=== PATIENT | female | born 1930 | race Caucasian/White ===

== ENCOUNTER 2016-03-08 20:44 | Emergency (ER) | payer OTHER ==
[2016-03-08 20:51] VITALS: BP 143/73; PULSE 94; TEMP 97.9; BMI 32.9
--- NOTE | 2016-03-08 21:25 | PDOC ---
History of Present Illness - General History Source: Family - History of Present Illness Initial Comments: 03/08/16 21:32 The patient is a 85 year old female with a PMH of AFIB, HTN, HLD and depression presented to the ED complaining of right knee pain secondary to mechanical fall. The patients daughter reports the patient was walking up the stairs and landed on both of her hands and both of her knees. Daughter denies LOC and head trauma. The patient lives at home with her family. Denies: chest pain, headache <Marcia Queen - Last Filed: 03/08/16 22:00> - General History Source: Patient <Ang Cristina - Last Filed: 03/08/16 23:04> - General Chief Complaint: Injury Stated Complaint: FALL/INJURY Time Seen by Provider: 03/08/16 21:21 Past History <Marcia Queen - Last Filed: 03/08/16 22:00> - Past Medical History Asthma: Yes Cardiac Disorders: Yes (afib) HTN: Yes Hypercholesterolemia: Yes - Surgical History Cholecystectomy: Yes - Immunization History Immunization Up to Date: Yes - Psycho/Social/Smoking Cessation Hx Anxiety: No Suicidal Ideation: No Smoking History: Never smoked Have you smoked in the past 12 months: No Hx Alcohol Use: No Drug/Substance Use Hx: No Substance Use Type: None Hx Substance Use Treatment: No <Ang Cristina - Last Filed: 03/08/16 23:04> - Past Medical History Allergies/Adverse Reactions: Allergies Allergy/AdvReac Type Severity Reaction Status Date / Time levofloxacin Allergy Rash Verified 03/08/16 20:47 Home Medications: Ambulatory Orders Atorvastatin Ca [Lipitor] 20 mg PO HS 07/07/14 Dabigatran Etexilate Mesylate [Pradaxa -] 150 mg PO BID 07/07/14 Diltiazem HCl [Cardizem LA] 180 mg PO DAILY 07/07/14 Paroxetine HCl [Paxil -] 40 mg PO DAILY 07/07/14 Potassium Chloride [K-Dur] 10 meq PO DAILY 07/07/14 Salmeterol/Fluticasone [Advair 100Mcg/50Mcg -] 1 inh IH BID 07/07/14 Diazepam [Valium] 5 mg PO HS PRN #3 tablet MDD 5 mg 08/03/16 Digoxin [Lanoxin -] 0.125 mg PO DAILY 03/08/16 Review of Systems - Review of Systems Able to Perform ROS?: Yes Comments:: 03/08/16 21:32 CONSTITUTIONAL: Absent: fever, chills, diaphoresis, generalized weakness, malaise, loss of appetite HEENT: Absent: rhinorrhea, nasal congestion, throat pain, throat swelling, difficulty swallowing, mouth swelling, ear pain, eye pain, visual Changes CARDIOVASCULAR: Absent: chest pain, syncope, palpitations, irregular heart rate, lightheadedness , peripheral edema RESPIRATORY: Absent: cough, shortness of breath, dyspnea with exertion, orthopnea, wheezing, stridor, hemoptysis GASTROINTESTINAL: Absent: abdominal pain, abdominal distension, nausea, vomiting, diarrhea, constipation, melena, hematochezia GENITOURINARY: Absent: dysuria, frequency, urgency, hesitancy, hematuria, flank pain, genital pain MUSCULOSKELETAL: + Right knee pain SKIN: Absent: rash, itching, pallor NEUROLOGIC: Absent: headache, focal weakness or paresthesias, dizziness, seizure, mental status changes, bladder or bowel incontinence PSYCHIATRIC: Absent: anxiety, depression, suicidal or homicidal ideation, hallucinations. 03/08/16 22:00 <Marcia Queen - Last Filed: 03/08/16 22:00> *Physical Exam - Vital Signs Last Vital Signs Temp Pulse Resp BP Pulse Ox 97.9 F 94 H 22 143/73 99 03/08/16 20:49 03/08/16 20:49 03/08/16 20:49 03/08/16 20:49 03/08/16 20:49 - Physical Exam Comments: 03/08/16 21:36 GENERAL: Well developed, well nourished. Awake and alert. No acute distress. HEENT: Normocephalic, atraumatic. PERRLA, EOMI. No conjunctival pallor. Sclera are non- icteric. Moist mucous membranes. Oropharynx is clear. NECK: Supple. Full ROM. No JVD. Carotid pulses 2+ and symmetric, without bruits. No thyromegaly. No lymphadenopathy. CARDIOVASCULAR: Regular rate and rhythm. No murmurs, rubs, or gallops. Distal pulses are 2+ and symmetric. PULMONARY: No evidence of respiratory distress. Lungs clear to auscultation bilaterally. No wheezing, rales or rhonchi. ABDOMINAL: Soft. Non-tender. Non-distended. No rebound or guarding. No organomegaly. Normoactive bowel sounds. MUSCULOSKELETAL Tenderness and swelling and ecchymosis to the right knee. Decreased ROM secondary to pain. EXTREMITIES: No cyanosis. No clubbing. No edema. No calf tenderness. SKIN: Warm and dry. Normal capillary refill. No rashes. No jaundice. NEUROLOGICAL: Alert, awake, appropriate. Cranial nerves 2-12 intact. No focal neurological deficits. PSYCHIATRIC: Cooperative. Good eye contact. Appropriate mood and affect. 03/08/16 22:00 <Marcia Queen - Last Filed: 03/08/16 22:00> - Vital Signs Last Vital Signs Temp Pulse Resp BP Pulse Ox 97.9 F 94 H 22 143/73 99 03/08/16 20:49 03/08/16 20:49 03/08/16 20:49 03/08/16 20:49 03/08/16 20:49 <Ang Cristina - Last Filed: 03/08/16 23:04> Medical Decision Making - Medical Decision Making 03/08/16 22:57 Dr. Cristina: The scribe's documentation has been prepared under my direction and personally reviewed by me in its entirery. I confirm that the note above accurately reflects all work, treatment, procedures, and medical decision making performed by me. Right knee x-ray no bony fracture. large effusion noted in knee. Will advise family to follow-up with orthopedist <Ang Cristina - Last Filed: 03/08/16 23:04> *DC/Admit/Observation/Transfer - Attestations Scribe Attestion: 03/08/16 21:37 Documentation prepared by Marcia Queen, acting as bilingual medical receptionist for Ang Cristina MD/. <Marcia Queen - Last Filed: 03/08/16 22:00> - Discharge Dispostion Admit: No <Ang Cristina - Last Filed: 03/08/16 23:04> Diagnosis at time of Disposition: Knee pain, right Qualifiers: Chronicity: acute Qualified Code(s): M25.561 - Pain in right knee - Discharge Dispostion Disposition: HOME Condition at time of disposition: Stable - Referrals Referrals: Jack De Leon MD [Primary Care Provider] - Avery Ross MD [Staff Physician] - - Patient Instructions Printed Discharge Instructions: DI for Knee Pain
[2016-03-08] MEDS ORDERED: ACETAMINOPHEN 325 MG TABLET (FP) PO ONE (21:26)
[2016-03-08] MEDS ORDERED: ACETAMINOPHEN 325 MG TABLET (FP) ONE (23:13)
== END 2016-03-08 23:26 | disposition home or self-care (01) ==
LOC: JER 20:44
DX: M25.561 Pain in right knee (principal); I48.91 Unspecified atrial fibrillation; Z79.01 Long term (current) use of anticoagulants; I10 Essential (primary) hypertension; E78.5 Hyperlipidemia, unspecified; F32.9 Major depressive disorder, single episode, unspecified; J45.909 Unspecified asthma, uncomplicated; Z90.49 Acquired absence of other specified parts of digestive tract; W18.39XA Other fall on same level, initial encounter; Y93.89 Activity, other specified; Y92.009 Unspecified place in unspecified non-institutional (private) residence as the place of occurrence of the external cause
CPT/HCPCS: 73562-TC-RT; 99282-25

== ENCOUNTER 2017-07-18 05:57 | Emergency (ER) | payer OTHER ==
[2017-07-18 06:38] VITALS: TEMP 97.4; BMI 30.1
[2017-07-18] MEDS ORDERED: ACETAMINOPHEN 1000 MG/100 ML VIAL (NON FORMULARY) IVPB ONE (07:20)
[2017-07-18] MEDS ORDERED: ACETAMINOPHEN INJECTION 100 ML IVPB ONE (07:25)
[2017-07-18] MEDS ORDERED: traMADol HCL 50 MG TABLET PO ONE (07:29)
[2017-07-18 07:37] LABS: BASO % 0.8 % (0-2.0); EOS % 3.1 % (0-4.5); HEMATOCRIT 34.4 % (32.4-45.2); HEMOGLOBIN 11.7 GM/dL (10.7-15.3); LYMPH % 20.2 % (8-40); MCH 29.9 pg (25.7-33.7); MEAN PLT VOLUME 7.9 fl (7.5-11.1); MONO % 5.5 % (3.8-10.2); NEUT % 70.4 % (42.8-82.8); PLATELET COUNT 283 K/MM3 (134-434); RBC 3.91 M/mm3 (3.60-5.2); RDW 15.7 % (11.6-15.6); WHITE BLOOD COUNT 7.4 K/mm3 (4.0-10.0)
[2017-07-18] MEDS ORDERED: traMADol HCL 50 MG TABLET ONE (07:40)
[2017-07-18 07:56] LABS: INR 1.34 (0.82-1.09); PROTHROMBIN TIME (PATIENT) 15.1 SEC (9.7-13.0)
[2017-07-18 08:23] LABS: URINE APPEARANCE SLCLOUDY; URINE BILIRUBIN NEGATIVE (<2.0 mg/dL); URINE COLOR YELLOW; URINE GLUCOSE (UA) NEGATIVE (NEGATIVE); URINE KETONE TRACE (NEGATIVE); URINE NITRITE NEGATIVE (NEGATIVE)
[2017-07-18 08:32] LABS: URINE LEUK ESTERASE 2+ (NEGATIVE); URINE PROTEIN 1+ (NEGATIVE)
[2017-07-18 08:33] LABS: BLOOD UREA NITROGEN 18 mg/dL (7-18); CALCIUM 8.9 mg/dL (8.5-10.1); CO2 29 mmol/L (21-32); CREATININE 1.1 mg/dL (0.55-1.02); GLUCOSE,RANDOM 99 mg/dL (74-106); LIPASE 121 U/L (73-393); SGPT/ALT 39 U/L (12-78)
[2017-07-18 08:34] LABS: ANION GAP 9 (8-16); CHLORIDE 106 mmol/L (98-107); SODIUM 144 mmol/L (136-145)
[2017-07-18 08:36] LABS: ALK PHOS 150 U/L (45-117); BILIRUBIN,TOTAL 0.9 mg/dL (0.2-1.0); TOT PROT 7.4 g/dl (6.4-8.2)
[2017-07-18 08:37] LABS: EPI CELLS RARE /HPF (FEW); URINE HYALINE CAST 3 /lpf
[2017-07-18 08:38] LABS: POTASSIUM 3.6 mmol/L (3.5-5.1)
[2017-07-18 08:40] LABS: SGOT/AST 46 U/L (15-37)
--- NOTE | 2017-07-18 08:46 | PDOC ---
History of Present Illness - General History Source: Patient Exam Limitations: No Limitations - History of Present Illness Initial Comments: 07/18/17 09:09 The patient is a 87 year old female, with a significant PMH of atrial fibrillation (on Pradaxa), congestive heart failure, hypertension, who presents to the emergency department with 5 days of constant left mid back pain. The patient states she was outside gardening this past Monday when she lifted a heavy cement flower statue from the ground up to her left side and placed the statue back on the ground. The patient reports that later that day she began to experience the left mid back pain which she states has been constant from that time and radiates around to the left side of her abdomen/ribs. The patient states the left mid back pain is worse with movement and bending over. She states she has tried taking Tylenol for the left mid back pain with minimal relief. She denies any numbness, tingling, weakness or loss of sensation. She denies any bowel or bladder incontinence. The patient denies chest pain, shortness of breath, headache and dizziness. Denies fever, chills, nausea, vomit, diarrhea and constipation. Denies dysuria, frequency, urgency and hematuria. Allergies: levofloxacin Social history: No reported PCP: Dr. Robin Scales <Ruddy Hoyt - Last Filed: 07/18/17 09:13> <Jama Cancino - Last Filed: 07/18/17 09:58> - General Chief Complaint: Pain Stated Complaint: PAIN,LT SIDE Time Seen by Provider: 07/18/17 07:17 Past History <Ruddy Hoyt - Last Filed: 07/18/17 09:13> - Past Medical History Asthma: Yes Cardiac Disorders: Yes (afib) COPD: No HTN: Yes Hypercholesterolemia: Yes - Surgical History Cholecystectomy: Yes - Immunization History Immunization Up to Date: Yes - Suicide/Smoking/Psychosocial Hx Smoking History: Never smoked Have you smoked in the past 12 months: No Information on smoking cessation initiated: No Hx Alcohol Use: No Drug/Substance Use Hx: No Substance Use Type: None Hx Substance Use Treatment: No <Jama Cancino - Last Filed: 07/18/17 09:58> - Past Medical History Allergies/Adverse Reactions: Allergies Allergy/AdvReac Type Severity Reaction Status Date / Time levofloxacin Allergy Rash Verified 07/18/17 06:32 Home Medications: Ambulatory Orders Atorvastatin Ca [Lipitor] 20 mg PO DAILY 07/07/14 Dabigatran Etexilate Mesylate [Pradaxa -] 150 mg PO BID 07/07/14 Diltiazem HCl [Cardizem LA] 240 mg PO DAILY 07/07/14 Paroxetine HCl [Paxil -] 40 mg PO DAILY 07/07/14 Potassium Chloride [K-Dur] 10 meq PO DAILY 07/07/14 Albuterol Sulfate Inhaler - [Ventolin HFA Inhaler -] 1 - 2 inh PO Q4H PRN Fluticasone/Salmeterol [Advair 250-50 Diskus] 1 each IH DAILY 07/18/17 Furosemide [Lasix] 20 mg PO DAILY 07/18/17 Multivitamin [Daily Multiple Vitamin] 1 each PO DAILY 07/18/17 Nitrofurantoin Monohyd/M-Cryst [Macrobid -] 100 mg PO BID #14 capsule 07/18/17 Tramadol HCl [Ultram] 50 mg PO TID PRN #10 tablet MDD 3 tabs 07/18/17 Review of Systems - Review of Systems Constitutional: No: Chills, Fever Respiratory: No: Cough, Shortness of Breath, SOB with Exertion Cardiac (ROS): No: Chest Pain, Edema, Lightheadedness, Syncope ABD/GI: No: Constipated, Diarrhea, Nausea, Vomiting : No: Dysuria, Flank Pain Musculoskeletal: Yes: Muscle Pain Integumentary: No: Bruising, Rash All Other Systems: Reviewed and Negative <Jama Cancino - Last Filed: 07/18/17 09:58> *Physical Exam - Vital Signs Last Vital Signs Temp Pulse Resp BP Pulse Ox 97.4 F L 86 20 150/102 96 07/18/17 06:27 07/18/17 07:30 07/18/17 07:30 07/18/17 07:30 07/18/17 07:30 - Physical Exam Comments: 07/18/17 09:10 GENERAL: The patient is awake, alert, and fully oriented, in no acute distress. HEAD: Normal with no signs of trauma. EYES: Pupils equal, round and reactive to light, extraocular movements intact, sclera anicteric, conjunctiva clear with no pallor. ENT: Ears normal, nares patent, oropharynx clear without exudates. Moist mucous membranes. NECK: Normal range of motion, supple without lymphadenopathy, JVD, or masses. LUNGS: Breath sounds equal, clear to auscultation bilaterally. No wheeze/ crackles. HEART: Regular rate and rhythm, normal S1 and S2 without murmur or rub. CHEST: (+) Focal tenderness to the left lower ribs from the 7th to 10th rib. No crepitus, bruising or step off. ABDOMEN: Soft/nontender/nondistended. BS wnl. No guarding or rebound. No palpable masses. No hepatosplenomegaly. EXTREMITIES: Normal range of motion, no edema. No clubbing or cyanosis. No cords, erythema, or tenderness. NEUROLOGICAL: Cranial nerves II through XII grossly intact. Normal speech, normal gait. PSYCH: Normal mood, normal affect. SKIN: Warm, Dry, normal turgor, no rashes or lesions noted. <Ruddy Hoyt - Last Filed: 07/18/17 09:13> - Vital Signs Last Vital Signs Temp Pulse Resp BP Pulse Ox 97.4 F L 86 20 150/102 96 07/18/17 06:27 07/18/17 07:30 07/18/17 07:30 07/18/17 07:30 07/18/17 07:30 <Jama Cancino - Last Filed: 07/18/17 09:58> ED Treatment Course - LABORATORY CBC & Chemistry Diagram: 07/18/17 07:20 07/18/17 07:24 - ADDITIONAL ORDERS Additional order review: Laboratory Results 07/18/17 07/18/17 07/18/17 07:42 07:24 07:24 PT with INR 15.10 H INR 1.34 H Sodium 144 Potassium 3.6 Chloride 106 Carbon Dioxide 29 Anion Gap 9 BUN 18 Creatinine 1.1 H Creat Clearance w eGFR 47.21 Random Glucose 99 Calcium 8.9 Total Bilirubin 0.9 AST 46 H ALT 39 Alkaline Phosphatase 150 H Creatine Kinase 208 H Troponin I < 0.02 Total Protein 7.4 Albumin 4.0 Lipase 121 Urine Color Yellow Urine Appearance Slcloudy Urine pH 7.0 D Ur Specific Randolph 1.015 Urine Protein 1+ H Urine Glucose (UA) Negative Urine Ketones Trace H Urine Blood Negative Urine Nitrite Negative Urine Bilirubin Negative Urine Urobilinogen 2.0 H Ur Leukocyte Esterase 2+ H D Urine WBC (Auto) 12 Urine RBC (Auto) None Ur Epithelial Cells Rare Hyaline Casts 3 07/18/17 07:20 RBC 3.91 MCV 88.0 MCHC 34.0 RDW 15.7 H D MPV 7.9 Neutrophils % 70.4 Lymphocytes % 20.2 D Monocytes % 5.5 D Eosinophils % 3.1 D Basophils % 0.8 - Medications Given in the ED: ED Medications Discontinued Medications Generic Name Dose Route Start Last Admin Trade Name Giuliana PRN Reason Stop Dose Admin Acetaminophen 1,000 mg 07/18/17 07:20 07/18/17 07:31 Ofirmev Injection - IVPB 07/18/17 07:21 1,000 mg ONCE ONE Administration Tramadol HCl 50 mg 07/18/17 07:29 07/18/17 07:48 Ultram - PO 07/18/17 07:30 50 mg ONCE ONE Administration <Ruddy Hoyt - Last Filed: 07/18/17 09:13> - LABORATORY CBC & Chemistry Diagram: 07/18/17 07:20 07/18/17 07:24 - ADDITIONAL ORDERS Additional order review: Laboratory Results 07/18/17 07/18/17 07/18/17 07:42 07:24 07:24 PT with INR 15.10 H INR 1.34 H Sodium 144 Potassium 3.6 Chloride 106 Carbon Dioxide 29 Anion Gap 9 BUN 18 Creatinine 1.1 H Creat Clearance w eGFR 47.21 Random Glucose 99 Calcium 8.9 Total Bilirubin 0.9 AST 46 H ALT 39 Alkaline Phosphatase 150 H Creatine Kinase 208 H Troponin I < 0.02 Total Protein 7.4 Albumin 4.0 Lipase 121 Urine Color Yellow Urine Appearance Slcloudy Urine pH 7.0 D Ur Specific Randolph 1.015 Urine Protein 1+ H Urine Glucose (UA) Negative Urine Ketones Trace H Urine Blood Negative Urine Nitrite Negative Urine Bilirubin Negative Urine Urobilinogen 2.0 H Ur Leukocyte Esterase 2+ H D 07/18/17 07:20 RBC 3.91 MCV 88.0 MCHC 34.0 RDW 15.7 H D MPV 7.9 Neutrophils % 70.4 Lymphocytes % 20.2 D Monocytes % 5.5 D Eosinophils % 3.1 D Basophils % 0.8 - RADIOLOGY Radiology Studies Ordered: Category Date Time Status RIBS-LEFT SIDE [RAD] Stat Radiology 07/18/17 07:29 Taken - Medications Given in the ED: ED Medications Discontinued Medications Generic Name Dose Route Start Last Admin Trade Name Giuliana PRN Reason Stop Dose Admin Acetaminophen 1,000 mg 07/18/17 07:20 07/18/17 07:31 Ofirmev Injection - IVPB 07/18/17 07:21 1,000 mg ONCE ONE Administration Tramadol HCl 50 mg 07/18/17 07:29 07/18/17 07:48 Ultram - PO 07/18/17 07:30 50 mg ONCE ONE Administration <Jama Cancino - Last Filed: 07/18/17 09:58> Medical Decision Making - Medical Decision Making 07/18/17 08:43 A portion of this note was documented by scribe services under my direction. I have reviewed the details of the note, within reason, and agree with the documentation with the following case summary and management plan written by me. 87-year-old high functioning female with history of hypertension and atrial fibrillation presents with 5 days of left mid back/mid torso pain since lifting a heavy cement statue. The patient was in her garden, picked up the statue lifting it against her left side, and shortly thereafter developed pain that has been persistent, described as sharp and constant radiating from her left mid back/RIBS and anteriorly to her abdomen. No associated nausea/vomiting/cough /fever/chills/dysuria/frequency/hematuria/diarrhea/constipation. She has taken Tylenol without relief, presents for evaluation. No falls or other injuries. Vital signs normal, O2 sat normal Well-appearing, speaking full sentences, moving comfortably in stretcher Heart is irregular with normal rate, lungs are clear without focally decreased breath sounds Abdomen is completely benign Patient does have reproducible tenderness along the left lower ribs, posteriorly more than anteriorly. There is no crepitus or bruising or swelling, no CVA tenderness Neurovascular intact 87-year-old female with likely rib contusion/strain, rule out fracture. Injury occurred about 5 days ago, vital signs are normal, and there are no red flags on history or physical exam to suggest internal injury. Check basic labs and urinalysis Chest x-ray/rib x-ray Pain control Reassess 07/18/17 09:47 CBC and chemistry are within normal limits, creatinine 1.1, troponin negative. Urinalysis with 2+ leuk esterase and 12 white blood cells, we'll treat empirically for UTI given the vague abdominal discomfort. X-ray shows no evidence of rib injury or pneumothorax/effusion. Pt markedly improved after tramadol, sitting up, smiling, moving around comfortably, no light headedness or nausea. Agrees with d/c plan, at bedside, understand return criteria. <Jama Cancino - Last Filed: 07/18/17 09:58> *DC/Admit/Observation/Transfer - Attestations Scribe Attestion: 07/18/17 09:11 Documentation prepared by Ruddy Hoyt, acting as medical assistant internal medicine for Jama Cancino MD. <Ruddy Hoyt - Last Filed: 07/18/17 09:13> <Jama Cancino - Last Filed: 07/18/17 09:58> Diagnosis at time of Disposition: Rib injury UTI (urinary tract infection) Qualifiers: Urinary tract infection type: acute cystitis Hematuria presence: without hematuria Qualified Code(s): N30.00 - Acute cystitis without hematuria - Discharge Dispostion Disposition: HOME Condition at time of disposition: Improved - Prescriptions Prescriptions: Nitrofurantoin Monohyd/M-Cryst [Macrobid -] 100 mg PO BID #14 capsule Tramadol HCl [Ultram] 50 mg PO TID PRN #10 tablet MDD 3 tabs PRN Reason: Severe Pain - Referrals Referrals: Robin Scales MD [Primary Care Provider] - - Patient Instructions Printed Discharge Instructions: DI for Urinary Tract Infection (UTI), DI for Rib Contusion Additional Instructions: Activity as tolerated. Stay hydrated. Blood tests and a chest x-ray showed no abnormalities or broken ribs. The ribs are probably bruised. Tylenol 1000 mg every 8 hours and/or aleve 400 mg every 12 hours as needed for moderate pain, tramadol as prescribed as needed for severe pain. Ice and elevate the affected areas for 20 minutes every 3-4 hours to reduce swelling. A urine test shows evidence of infection. Take Macrobid as prescribed as an antibiotic. Continue your medications as previously prescribed by your physician. You should follow up with Dr. Martinez as soon as possible regarding today's emergency department visit. Return to the emergency department for any new or concerning symptoms, particularly persistent or worsening pain, fevers or chills, difficulty breathing or urinating, swelling or discoloration. - Post Discharge Activity
[2017-07-18 10:17] VITALS: BP 143/101; PULSE 92
--- NOTE | 2017-07-18 11:52 | EKG ---
Test Reason : Blood Pressure : / mmHG Vent. Rate : 090 BPM Atrial Rate : 394 BPM P-R Int : 000 ms QRS Dur : 080 ms QT Int : 360 ms P-R-T Axes : 000 021 269 degrees QTc Int : 440 ms ATRIAL FIBRILLATION ANTEROSEPTAL INFARCT (CITED ON OR BEFORE 08-JUL-2014) ABNORMAL ECG Confirmed by MD BIRDIE, AGUSTIN ([id number]) on 07/18/2017 11:51:57 AM Referred By: Confirmed By:AGUSTIN PACKER MD
== END 2017-07-18 10:17 | disposition home or self-care (01) ==
LOC: JER 05:57
PROC: 3E033NZ Introduction of Analgesics, Hypnotics, Sedatives into Peripheral Vein, Percutaneous Approach (ICD-10-PCS; principal; 2017-07-18)
DX: S29.012A Strain of muscle and tendon of back wall of thorax, initial encounter (principal); N30.00 Acute cystitis without hematuria; X50.0XXA Overexertion from strenuous movement or load, initial encounter; Y93.H2 Activity, gardening and landscaping; Y92.017 Garden or yard in single-family (private) house as the place of occurrence of the external cause; Y99.8 Other external cause status; I10 Essential (primary) hypertension; I50.9 Heart failure, unspecified; J45.909 Unspecified asthma, uncomplicated; I48.91 Unspecified atrial fibrillation; Z79.01 Long term (current) use of anticoagulants
CPT/HCPCS: 36415; 71101-TC-FY; 80053; 81003; 81015; 82550; 82553; 83690; 84484; 85025; 85610; 87086; 93005; 93010; 96374; 99285-25; J0131

== ENCOUNTER 2017-07-22 11:42 | Emergency (ER) | payer OTHER ==
[2017-07-22 11:48] VITALS: BP 152/73; PULSE 100; TEMP 97.9; BMI 30.1
--- NOTE | 2017-07-22 11:55 | PDOC ---
History of Present Illness - General Chief Complaint: Rash Stated Complaint: PAIN Time Seen by Provider: 07/22/17 11:50 History Source: Patient Exam Limitations: Language Barrier (Daughter at bedside translating, refuse [employer]) - History of Present Illness Initial Comments: 07/22/17 11:50 Patient is an 87-year-old female who presents to the emergency department with 3 days of rash from her left back to her left chest. The rash follows 1 straight line. Patient states that the pain is throbbing and burning. Denies fevers, chills, recent illness, weakness, headaches, nausea, vomiting and diarrhea. Patient was seen in our emergency department on 07/18/17 for left rib pain after gardening. At that time there was no rash. Lab work was benign. creatinine mildly elevated with possible UTI. Patient treated with Macrobid and tramadol. Past History - Travel Traveled outside of the country in the last 30 days: No Close contact w/someone who was outside of country & ill: No - Past Medical History Allergies/Adverse Reactions: Allergies Allergy/AdvReac Type Severity Reaction Status Date / Time levofloxacin Allergy Rash Verified 07/22/17 11:48 Home Medications: Ambulatory Orders Atorvastatin Ca [Lipitor] 20 mg PO DAILY 07/07/14 Dabigatran Etexilate Mesylate [Pradaxa -] 150 mg PO BID 07/07/14 Diltiazem HCl [Cardizem LA] 240 mg PO DAILY 07/07/14 Paroxetine HCl [Paxil -] 40 mg PO DAILY 07/07/14 Potassium Chloride [K-Dur] 10 meq PO DAILY 07/07/14 Albuterol Sulfate Inhaler - [Ventolin HFA Inhaler -] 1 - 2 inh PO Q4H PRN Fluticasone/Salmeterol [Advair 250-50 Diskus] 1 each IH DAILY 07/18/17 Furosemide [Lasix] 20 mg PO DAILY 07/18/17 Multivitamin [Daily Multiple Vitamin] 1 each PO DAILY 07/18/17 Nitrofurantoin Monohyd/M-Cryst [Macrobid -] 100 mg PO BID #14 capsule 07/18/17 Tramadol HCl [Ultram] 50 mg PO TID PRN #10 tablet MDD 3 tabs 07/18/17 Gabapentin 300 mg PO TID #21 capsule 07/22/17 Oxycodone HCl/Acetaminophen [Percocet 5-325 mg Tablet] 1 tab PO Q6H #20 tablet MDD 4 07/22/17 Valacyclovir HCl [Valtrex -] 1,000 mg PO TID #21 tablet 07/22/17 Asthma: Yes Cardiac Disorders: Yes (afib) COPD: No HTN: Yes Hypercholesterolemia: Yes - Surgical History Cholecystectomy: Yes - Immunization History Immunization Up to Date: Yes - Suicide/Smoking/Psychosocial Hx Smoking History: Never smoked Have you smoked in the past 12 months: No Hx Alcohol Use: No Drug/Substance Use Hx: No Substance Use Type: None Hx Substance Use Treatment: No Review of Systems - Review of Systems Able to Perform ROS?: Yes Comments:: 07/22/17 11:51 CONSTITUTIONAL: Absent: fever, chills, diaphoresis, generalized weakness, malaise, loss of appetite HEENT: Normocephalic, atraumatic. PERRLA, EOMI. No conjunctival pallor. Sclera are non- icteric. Moist mucous membranes. Oropharynx is clear. MUSCULOSKELETAL: Absent: myalgia, arthralgia, joint swelling SKIN: Present: rash to L back around to L chest. Absent: itching, pallor NEUROLOGIC: Absent: headache, focal weakness or paresthesias, dizziness, unsteady gait, seizure, mental status changes, bladder or bowel incontinence PSYCHIATRIC: Absent: anxiety, depression, suicidal or homicidal ideation, hallucinations. 07/22/17 11:54 Is the patient limited Slovak proficient: No *Physical Exam - Vital Signs Last Vital Signs Temp Pulse Resp BP Pulse Ox 97.9 F 100 H 20 152/73 100 07/22/17 11:43 07/22/17 11:43 07/22/17 11:43 07/22/17 11:43 07/22/17 11:43 - Physical Exam Comments: 07/22/17 11:52 GENERAL: The patient is awake, alert, and fully oriented, in no acute distress. HEAD: Normal with no signs of trauma. EYES: Pupils equal, round and reactive to light, extraocular movements intact, sclera anicteric, conjunctiva clear. EXTREMITIES: Normal range of motion, no edema. NEUROLOGICAL: Normal speech, normal gait. PSYCH: Normal mood, normal affect. SKIN: Vesciulomacular rash following a dermatome from the L back wrapping around to L chest. Does not cross the midline. Warm, Dry, normal turgor, or lesions noted. Medical Decision Making - Medical Decision Making 07/22/17 11:53 Patient is an 87-year-old female who presents emergency department with a shingles like rash for 3 days. The rash follows the dermatome along the left chest with no crossing of the midline. Percocet given for pain. Ear exam is normal. We'll discharge home at this time with Valtrex, Percocet and Neurontin. Patient is to follow-up with her primary care doctor on Monday. Strict return precautions given. Patient understands all discharge instructions and all questions were answered. *DC/Admit/Observation/Transfer Diagnosis at time of Disposition: Shingles Qualifiers: Herpes zoster complications: without complications Qualified Code(s): B02.9 - Zoster without complications - Discharge Dispostion Disposition: HOME Condition at time of disposition: Stable Decision to Admit order: No - Referrals Referrals: Robin Scales MD [Primary Care Provider] - Arlen Park [Staff Physician] - Polly Padron MD [Staff Physician] - - Patient Instructions Printed Discharge Instructions: DI for Shingles Additional Instructions: You have shingles. Please take the Valtrex 3 times a day for the next week. Please take the gabapentin 3 times a day Please take Percocet every 6 hours as needed for pain. He may try capsaicin cream. This is [id number] you may find the pharmacy. Warm water baths may help with pain as well. Please follow up with her primary care doctor on Monday. If he does not have one referral to been provided for you. Return to the emergency department if you have increased pain, fevers, chills, altered mental status, or have any changes in your symptoms. - Post Discharge Activity
[2017-07-22] MEDS ORDERED: GABAPENTIN 300 MG CAPSULE (FP) PO ONE (12:46)
[2017-07-22] MEDS ORDERED: GABAPENTIN 100 MG CAPSULE (FP) ONE (12:53)
== END 2017-07-22 13:51 | disposition home or self-care (01) ==
LOC: JERFT 11:42
DX: B02.9 Zoster without complications (principal); I10 Essential (primary) hypertension; E78.00 Pure hypercholesterolemia, unspecified; J45.909 Unspecified asthma, uncomplicated; I48.91 Unspecified atrial fibrillation; Z79.01 Long term (current) use of anticoagulants
CPT/HCPCS: 99281-25

== ENCOUNTER 2017-08-01 08:16 | Emergency (ER) | payer OTHER ==
[2017-08-01 08:22] VITALS: BP 138/81; PULSE 80; TEMP 98.2; BMI 30.1
--- NOTE | 2017-08-01 08:36 | PDOC ---
History of Present Illness - General Chief Complaint: Shortness of Breath Stated Complaint: SOB Time Seen by Provider: 08/01/17 08:36 - History of Present Illness Initial Comments: 08/01/17 09:02 Ms. Medellin is an 87 yo female w/ pmh of afib (on pradaxa), CHF, HTN, and recent diagnosis 11 days ago for shingles who presents for evaluation of continuing rash with pain at site to her left side. Per daughter who is with her it has been improving, however she presents as it is still painful. Patient has recently been proscribed gabapentin, tramadol, and oxycodone for this pain. Has taken all of her valtrex at this time. The patient denies chest pain, shortness of breath, headache and dizziness. Denies fever, chills, nausea, vomit, diarrhea and constipation. Denies dysuria, frequency, urgency and hematuria. Allergies: Levofloxacin Past History - Past Medical History Allergies/Adverse Reactions: Allergies Allergy/AdvReac Type Severity Reaction Status Date / Time levofloxacin Allergy Rash Verified 08/01/17 08:17 Home Medications: Ambulatory Orders Atorvastatin Ca [Lipitor] 20 mg PO DAILY 07/07/14 Dabigatran Etexilate Mesylate [Pradaxa -] 150 mg PO BID 07/07/14 Diltiazem HCl [Cardizem LA] 240 mg PO DAILY 07/07/14 Paroxetine HCl [Paxil -] 40 mg PO DAILY 07/07/14 Potassium Chloride [K-Dur] 10 meq PO DAILY 07/07/14 Albuterol Sulfate Inhaler - [Ventolin HFA Inhaler -] 1 - 2 inh PO Q4H PRN Fluticasone/Salmeterol [Advair 250-50 Diskus] 1 each IH DAILY 07/18/17 Furosemide [Lasix] 20 mg PO DAILY 07/18/17 Multivitamin [Daily Multiple Vitamin] 1 each PO DAILY 07/18/17 Gabapentin 300 mg PO TID #21 capsule 07/22/17 Oxycodone HCl/Acetaminophen [Percocet 5-325 mg Tablet] 1 tab PO Q6H #20 tablet MDD 4 07/22/17 Valacyclovir HCl [Valtrex -] 1,000 mg PO TID #21 tablet 07/22/17 Methylprednisolone [Medrol Dose Lloyd] 4 mg PO ASDIR #21 tablet 08/01/17 Valacyclovir HCl [Valtrex] 1,000 mg PO TID #15 tablet 08/01/17 Asthma: Yes Cardiac Disorders: Yes (afib) COPD: No DVT: No HTN: Yes Hypercholesterolemia: Yes - Surgical History Cholecystectomy: Yes - Immunization History Immunization Up to Date: Yes - Suicide/Smoking/Psychosocial Hx Smoking History: Never smoked Have you smoked in the past 12 months: No Information on smoking cessation initiated: No Hx Alcohol Use: No Drug/Substance Use Hx: No Substance Use Type: None Hx Substance Use Treatment: No Review of Systems - Review of Systems Comments:: 08/01/17 09:05 GENERAL/CONSTITUTIONAL: No fever or chills. No weakness. HEAD, EYES, EARS, NOSE AND THROAT: No change in vision. No ear pain or discharge. No sore throat. CARDIOVASCULAR: No chest pain or shortness of breath RESPIRATORY: No cough, wheezing, or hemoptysis. GASTROINTESTINAL: No nausea, vomiting, diarrhea or constipation. GENITOURINARY: No dysuria, frequency, or change in urination. MUSCULOSKELETAL: No joint or muscle swelling or pain. No neck or back pain. SKIN: +Pain and rash from left mid back traveling to under left breast. Has been resolving. NEUROLOGIC: No headache, vertigo, loss of consciousness, or change in strength/ sensation. ENDOCRINE: No increased thirst. No abnormal weight change HEMATOLOGIC/LYMPHATIC: No anemia, easy bleeding, or history of blood clots. ALLERGIC/IMMUNOLOGIC: No hives or skin allergy. *Physical Exam - Vital Signs Last Vital Signs Temp Pulse Resp BP Pulse Ox 98.2 F 80 24 138/81 100 08/01/17 08:19 08/01/17 08:19 08/01/17 08:19 08/01/17 08:19 08/01/17 08:19 - Physical Exam Comments: 08/01/17 09:05 GENERAL: Awake, alert, and fully oriented, in no acute distress HEAD: No signs of trauma, normocephalic, atraumatic EYES: PERRLA, EOMI, sclera anicteric, conjunctiva clear ENT: Auricles normal inspection, hearing grossly normal, nares patent, oropharynx clear without exudates. Moist mucosa NECK: Normal ROM, supple, no lymphadenopathy, JVD, or masses LUNGS: No distress, speaks full sentences, clear to auscultation bilaterally HEART: Regular rate and rhythm, normal S1 and S2, no murmurs, rubs or gallops, peripheral pulses normal and equal bilaterally. ABDOMEN: Soft, nontender, normoactive bowel sounds. No guarding, no rebound. No masses EXTREMITIES: Normal inspection, Normal range of motion, no edema. No clubbing or cyanosis. NEUROLOGICAL: Cranial nerves II through XII grossly intact. Normal speech, normal gait, no focal sensorimotor deficits SKIN: +Dermatomal scabbed shingles typical rash from left mid back to under left breast in approximate T6 region. Medical Decision Making - Medical Decision Making 08/01/17 09:06 Ms. Medellin is an 87 yo female w/ pmh as described who presents for evaluation of continuing shingles rash. Patient reporting pain at site with movement. Patient appears well with no difficulty breathing and lungs bilaterally C2A. Discharging to home w/ medrol pack and script for valtrex refill. Patient will f /u with PCP for further evaluation. *DC/Admit/Observation/Transfer Diagnosis at time of Disposition: Shingles Qualifiers: Herpes zoster complications: without complications Qualified Code(s): B02.9 - Zoster without complications - Discharge Dispostion Disposition: HOME - Prescriptions Prescriptions: Methylprednisolone [Medrol Dose Lloyd] 4 mg PO ASDIR #21 tablet Valacyclovir HCl [Valtrex] 1,000 mg PO TID #15 tablet - Referrals - Patient Instructions Printed Discharge Instructions: DI for Shingles Additional Instructions: Please follow-up with primary care provider for further evaluation. Take all medications as described. Return to ER if any increase in pain, fever, chills, or other concerning symptoms. - Post Discharge Activity
--- NOTE | 2017-08-01 09:37 | PDOC ---
Attending Attestation - Resident Resident Name: RobinellenmadelineJorge - ED Attending Attestation I have performed the following: I have examined & evaluated the patient, The case was reviewed & discussed with the resident, I agree w/resident's findings & plan - HPI HPI: 08/01/17 09:31 87-year-old female recently diagnosed left sided shingles discharged on 3 day course of Valtrex, gabapentin, and oxycodone presents now with persistent pain and complaining of side effects of the pain medications, making her lightheaded. No fevers or chills, the rash is resolving. - Physicial Exam PE: 08/01/17 09:32 Vital signs normal, O2 sat 100% She is very well-appearing and moving around comfortably in no respiratory distress Resolving left C6 dermatome shingles rash, positive hypersensory. No superimposed cellulitis. Lungs are clear, heart is irregular with normal rate, no CVA tenderness Neurologically intact - Medical Decision Making 08/01/17 09:34 87-year-old female with recently diagnosed shingles presents with persistent neuropathic pain, resolving rash and no other complications. Respiratory symptoms likely secondary to her chest and nerve pain, no evidence for cardiac or pulmonary process. Has h/o afib but is rate controlled Check chest x-ray EKG afib without acute ischemic changes Will continue Valtrex, and steroids Stop opiates in this 87-year-old female given the side effects Heart Score/ECG Review #1 ECG reviewed & interpreted by me at: 08:20 Compared to previous ECG there are: No significant change (c/w 07/08/17 and 2014) 08/01/17 09:38 afib at 87. nonspecific T wave changes unchanged from prior. no ST changes.
--- NOTE | 2017-08-02 11:13 | EKG ---
Test Reason : Blood Pressure : / mmHG Vent. Rate : 087 BPM Atrial Rate : 097 BPM P-R Int : 000 ms QRS Dur : 082 ms QT Int : 366 ms P-R-T Axes : 000 034 -36 degrees QTc Int : 440 ms ATRIAL FIBRILLATION SEPTAL INFARCT (CITED ON OR BEFORE 08-JUL-2014) ABNORMAL ECG WHEN COMPARED WITH ECG OF 18-JUL-2017 06:23, SERIAL CHANGES OF SEPTAL INFARCT PRESENT Confirmed by DENIS FUNES, MIGEL ([id number]) on 08/02/2017 11:13:10 AM Referred By: Confirmed By:MIGEL BARRIOS MD
== END 2017-08-01 10:38 | disposition home or self-care (01) ==
LOC: JER 08:16
DX: B02.9 Zoster without complications (principal); I25.10 Atherosclerotic heart disease of native coronary artery without angina pectoris; I11.0 Hypertensive heart disease with heart failure; I48.91 Unspecified atrial fibrillation; Z79.01 Long term (current) use of anticoagulants; E78.00 Pure hypercholesterolemia, unspecified
CPT/HCPCS: 71046-TC-FY; 93005; 93010; 99282-25

== ENCOUNTER 2017-08-16 14:38 | Inpatient (IN) | payer OTHER ==
--- NOTE | 2017-08-16 15:02 | PDOC ---
Rapid Medical Evaluation Medical Evaluation: Allergies Allergy/AdvReac Type Severity Reaction Status Date / Time levofloxacin Allergy Rash Verified 08/01/17 08:17 oxycodone [From Percocet] Allergy Verified 08/16/17 14:57 08/16/17 14:57 I have performed a brief in-person evaluation of this patient. The patient presents with a chief complaint of: Cough w/ ?sob x several days. Dx w/ shingles 1 month ago, completed antiviral and dx w/ PHN on gabapentin but continues to c/o L chest wall pain. Also taking percocet but unable to tolerate 2/2 sob per pt. H/o HTN and ?COPD Pertinent physical exam findings:stable and in NAD I have ordered the following:labs/cxr/ekg The patient will proceed to the ED for further evaluation. Discharge Disposition - Diagnosis Cough - Referrals - Patient Instructions - Post Discharge Activity
[2017-08-16 15:49] LABS: BASO % 0.7 % (0-2.0); EOS % 3.1 % (0-4.5); HEMATOCRIT 29.5 % (32.4-45.2); HEMOGLOBIN 9.6 GM/dL (10.7-15.3); LYMPH % 16.5 % (8-40); MCH 29.4 pg (25.7-33.7); MCHC 32.6 g/dl (32.0-36.0); MEAN CELL VOLUME 90.2 fl (80-96); MEAN PLT VOLUME 7.2 fl (7.5-11.1); MONO % 9.8 % (3.8-10.2); NEUT % 69.9 % (42.8-82.8); PLATELET COUNT 294 K/MM3 (134-434); RBC 3.27 M/mm3 (3.60-5.2); WHITE BLOOD COUNT 8.6 K/mm3 (4.0-10.0)
[2017-08-16] MEDS ORDERED: methylPREDNISolone NA SUCC 125 MG/2 ML VIAL IVPB ONE (16:38)
[2017-08-16] MEDS ORDERED: ACETAMINOPHEN WITH CODEINE 300MG/30MG TABLET PO ONE (16:40)
[2017-08-16 16:56] LABS: ALBUMIN 3.3 g/dl (3.4-5.0); ANION GAP 12 (8-16); BILIRUBIN,TOTAL 0.7 mg/dL (0.2-1.0); BLOOD UREA NITROGEN 19 mg/dL (7-18); CALCIUM 8.6 mg/dL (8.5-10.1); CHLORIDE 108 mmol/L (98-107); CO2 24 mmol/L (21-32); GLUCOSE,RANDOM 86 mg/dL (74-106); POTASSIUM 3.8 mmol/L (3.5-5.1); SGOT/AST 34 U/L (15-37); SGPT/ALT 40 U/L (12-78); SODIUM 144 mmol/L (136-145); TOT PROT 6.5 g/dl (6.4-8.2)
[2017-08-16 16:57] LABS: ALK PHOS 125 U/L (45-117)
[2017-08-16] MEDS ORDERED: AZITHROMYCIN IVPB 500 MG in DEXTROSE 5%-WATER - 250 ML IVPB ONE (17:05)
--- NOTE | 2017-08-16 17:08 | PDOC ---
History of Present Illness <Lenin Nuno - Last Filed: 08/16/17 17:11> - History of Present Illness Initial Comments: 08/16/17 17:06 "The patient is an 87 year old female with a significant PMH of AFib (on Pradaxa ), CHF, COPD, HTN, and recent diagnosis of shingles who presents to the emergency department for 2 weeks of shortness of breath. The patient states the patient has been increasingly short of breath over the past 2 weeks and has just recently developed an associated productive cough. The patient states she has had difficulty sleeping secondary to her shortness of breath. She denies F/ C. Pt has used her albuterol nebulizer at home with minimal relief. She states she completed a course of steroids last week with no improvement. Has not been on abx. The patient also reports pain at the location of her shingles rash. The rash has mostly resolved, but pt has persistent hypersensitivity and pain to the area. She states she was prescribed percocet but can't take it due to an allergy. The patient denies chest pain, headache and dizziness. Denies fever, chills, nausea, vomit, diarrhea and constipation. Denies dysuria, frequency, urgency and hematuria. Allergies: NKA Past surgical history: Cardiac stents. Social history: No reported cigarette, alcohol, or drug use. PCP: None reported. " <Avery Jones - Last Filed: 08/16/17 17:52> - General Chief Complaint: Respiratory Stated Complaint: SHINGLES Time Seen by Provider: 08/16/17 16:03 Past History <Lenin Nuno - Last Filed: 08/16/17 17:11> - Past Medical History Asthma: Yes Cardiac Disorders: Yes (afib) COPD: No DVT: No HTN: Yes Hypercholesterolemia: Yes - Surgical History Cholecystectomy: Yes - Immunization History Immunization Up to Date: Yes - Suicide/Smoking/Psychosocial Hx Smoking History: Never smoked Have you smoked in the past 12 months: No Hx Alcohol Use: No Drug/Substance Use Hx: No Substance Use Type: None Hx Substance Use Treatment: No <Avery Jones - Last Filed: 08/16/17 17:52> - Past Medical History Allergies/Adverse Reactions: Allergies Allergy/AdvReac Type Severity Reaction Status Date / Time levofloxacin Allergy Rash Verified 08/01/17 08:17 oxycodone [From Percocet] Allergy Verified 08/16/17 14:57 Home Medications: Ambulatory Orders Atorvastatin Ca [Lipitor] 20 mg PO DAILY 07/07/14 Dabigatran Etexilate Mesylate [Pradaxa -] 150 mg PO BID 07/07/14 Diltiazem HCl [Cardizem LA] 240 mg PO DAILY 07/07/14 Paroxetine HCl [Paxil -] 40 mg PO DAILY 07/07/14 Potassium Chloride [K-Dur] 10 meq PO DAILY 07/07/14 Albuterol Sulfate Inhaler - [Ventolin HFA Inhaler -] 1 - 2 inh PO Q4H PRN Fluticasone/Salmeterol [Advair 250-50 Diskus] 1 each IH DAILY 07/18/17 Furosemide [Lasix] 20 mg PO DAILY 07/18/17 Multivitamin [Daily Multiple Vitamin] 1 each PO DAILY 07/18/17 Gabapentin 300 mg PO TID #21 capsule 07/22/17 Oxycodone HCl/Acetaminophen [Percocet 5-325 mg Tablet] 1 tab PO Q6H #20 tablet MDD 4 07/22/17 Valacyclovir HCl [Valtrex -] 1,000 mg PO TID #21 tablet 07/22/17 Methylprednisolone [Medrol Dose Lloyd] 4 mg PO ASDIR #21 tablet 08/01/17 Valacyclovir HCl [Valtrex] 1,000 mg PO TID #15 tablet 08/01/17 Review of Systems - Review of Systems Comments:: 08/16/17 17:08 "GENERAL/CONSTITUTIONAL: No fever or chills. No weakness. HEAD, EYES, EARS, NOSE AND THROAT: No change in vision. No ear pain or discharge. No sore throat. CARDIOVASCULAR: No chest pain. RESPIRATORY: (+) Shortness of breath. + cough. GASTROINTESTINAL: No nausea, vomiting, diarrhea or constipation. GENITOURINARY: No dysuria, frequency, or change in urination. MUSCULOSKELETAL: No joint pain. No neck pain. SKIN: No rash NEUROLOGIC: No headache, vertigo, loss of consciousness, or change in strength/ sensation. ENDOCRINE: No increased thirst. No abnormal weight change. HEMATOLOGIC/LYMPHATIC: No anemia, easy bleeding, or history of blood clots. ALLERGIC/IMMUNOLOGIC: No hives or skin allergy. " <Ou,Avery - Last Filed: 08/16/17 17:52> *Physical Exam - Vital Signs Last Vital Signs Temp Pulse Resp BP Pulse Ox 97.9 F 85 18 101/66 96 08/16/17 14:40 08/16/17 14:40 08/16/17 14:40 08/16/17 14:40 08/16/17 14:40 <Lenin Nuno - Last Filed: 08/16/17 17:11> - Vital Signs Last Vital Signs Temp Pulse Resp BP Pulse Ox 97.9 F 85 18 101/66 96 08/16/17 14:40 08/16/17 14:40 08/16/17 14:40 08/16/17 14:40 08/16/17 14:40 - Physical Exam Comments: 08/16/17 17:09 "GENERAL: Awake, alert, and fully oriented, in no acute distress. HEAD: No signs of trauma EYES: PERRLA, EOMI, sclera anicteric, conjunctiva clear ENT: Auricles normal inspection, hearing grossly normal, nares patent, oropharynx clear without exudates. Moist mucosa NECK: Nontender, no stepoffs, Normal ROM, supple, no lymphadenopathy, JVD, or masses LUNGS: + diffuse expiratory wheezing HEART: Regular rate and rhythm, normal S1 and S2, no murmurs, rubs or gallops ABDOMEN: Soft, nontender, normoactive bowel sounds. No guarding, no rebound. No masses EXTREMITIES: Normal range of motion, no edema. No clubbing or cyanosis. No cords , erythema, or tenderness NEUROLOGICAL: Cranial nerves II through XII intact. 5/5 strength and sensation in all extremities, Normal speech, normal gait, normal cerebellar function SKIN: Shingles rash to L chest mostly resolved <Avery oJnes - Last Filed: 08/16/17 17:52> ED Treatment Course - LABORATORY CBC & Chemistry Diagram: 08/16/17 15:22 08/16/17 15:22 - ADDITIONAL ORDERS Additional order review: Laboratory Results 08/16/17 15:22 Sodium 144 Potassium 3.8 Chloride 108 H Carbon Dioxide 24 Anion Gap 12 BUN 19 H Creatinine 1.0 Creat Clearance w eGFR 52.69 Random Glucose 86 Calcium 8.6 Total Bilirubin 0.7 D AST 34 ALT 40 Alkaline Phosphatase 125 H Total Protein 6.5 Albumin 3.3 L 08/16/17 15:22 RBC 3.27 L MCV 90.2 MCHC 32.6 RDW 17.0 H MPV 7.2 L Neutrophils % 69.9 Lymphocytes % 16.5 Monocytes % 9.8 Eosinophils % 3.1 Basophils % 0.7 <Lenin Nuno - Last Filed: 08/16/17 17:11> - LABORATORY CBC & Chemistry Diagram: 08/16/17 15:22 08/16/17 15:22 - ADDITIONAL ORDERS Additional order review: 08/16/17 15:22 RBC 3.27 L MCV 90.2 MCHC 32.6 RDW 17.0 H MPV 7.2 L Neutrophils % 69.9 Lymphocytes % 16.5 Monocytes % 9.8 Eosinophils % 3.1 Basophils % 0.7 <Avery Jones - Last Filed: 08/16/17 17:52> Medical Decision Making - Medical Decision Making 08/16/17 17:02 87 F with SOB and cough, wheezing on exam. Likely COPD flare. Pt also complaining of pain from shingles. Unable to take the percocet prescribed to her due to allergy. - Labs, trop, BNP - CXR - Nebs, steroids, azithro 08/16/17 17:50 Labs wnl CXR clear Pt continues to be wheezy s/p nebs and steroids. Will admit to hospitalist for COPD exacerbation. <Avery Jones - Last Filed: 08/16/17 17:52> *DC/Admit/Observation/Transfer - Attestations Scribe Attestion: 08/16/17 17:11 Documentation prepared by Lenin Nuno, acting as director of medical staff services for Avery Jones MD. <Lenin Nuno - Last Filed: 08/16/17 17:11> - Discharge Dispostion Decision to Admit order: Yes - Attestations Physician Attestion: 08/16/17 17:51 I, Dr. Avery Jones MD, attest that this document has been prepared under my direction and personally reviewed by me in its entirety. I further attest, that it accurately reflects all work, treatment, procedures and medical decision -making performed by me. <Avery Jones - Last Filed: 08/16/17 17:52> Diagnosis at time of Disposition: COPD exacerbation
[2017-08-16] MEDS: ALBUTEROL SO4 2.5/IPRATROPIUM 0.5 INH SOL 3 ML VIAL.NEB. NEB SCH ×5 (17:20→22:20)
[2017-08-16] MEDS ORDERED: ACETAMINOPHEN WITH CODEINE 300MG/30MG TABLET ONE (17:21)
[2017-08-16] MEDS ORDERED: methylPREDNISolone NA SUCC 125 MG/2 ML VIAL ONE (17:22)
[2017-08-16] MEDS ORDERED: AZITHROMYCIN IVPB 250 ML IVPB ONE (17:22)
[2017-08-16] MEDS ORDERED: ALBUTEROL SO4 2.5/IPRATROPIUM 0.5 INH SOL 3 ML VIAL.NEB. NEB ONE (17:22)
--- NOTE | 2017-08-16 17:50 | HP ---
CHIEF COMPLAINT: " Shortness of breath" PCP: Dr. Yazmin Swenson Talent Acquisition Program Manager: Dr. Rodriguez. HISTORY OF PRESENT ILLNESS: Patient is an 87 year old female presented to the ED with the chief complaints of " SOB". As per the patient, she had SOB since several weeks, progressively getting worse. No h/o Orthopnea or PND. SOB is associated with productive sputum , describes it as greenish yellowish sputum. Denies fever, chills, rigors or sweating. No sick contacts. Patient was seen by her PMD who gave her steroids for 5 days without any significant relief. Hence came in to the ED for further evaluation. Patient was recently diagnosed to have Shingles (07/22/2017) was given Valtrex, Gabapentin and Percocet. However percocet caused dizziness and SOB. She reports she has excruciating pain from Shingles and Gabapentin is not helping with her pain. Bowel/Bladder habit normal. Sleep/Appetite normal prior to her illness. ER course was notable for: (1) Afebrile, hemodynamically stable, on 2L oxygen; H/H 9.6/29.5 (2) CXR: No acute pathology (3) Azithromycin, Solumedrol, Albuterol Recent Travel: None PAST MEDICAL HISTORY: Atrial fibrillation on Pradaxa, CHF, COPD, HTH, Dx of Shingles PAST SURGICAL HISTORY: Cholecystectomy Social History: Smoking: Second hand smoker; Alcohol: Denies Drugs: Denies Family History: Non contributory Allergies levofloxacin Allergy (Verified 08/01/17 08:17) Rash oxycodone [From Percocet] Allergy (Verified 08/16/17 14:57) HOME MEDICATIONS: Home Medications Medication Instructions Recorded Atorvastatin Ca [Lipitor] 20 mg PO DAILY 07/07/14 Dabigatran Etexilate Mesylate 150 mg PO BID 07/07/14 [Pradaxa -] Diltiazem HCl [Cardizem LA] 240 mg PO DAILY 07/07/14 Paroxetine HCl [Paxil -] 40 mg PO DAILY 07/07/14 Potassium Chloride [K-Dur] 10 meq PO DAILY 07/07/14 Albuterol Sulfate Inhaler - 1 - 2 inh PO Q4H PRN 07/18/17 [Ventolin HFA Inhaler -] Fluticasone/Salmeterol [Advair 1 each IH DAILY 07/18/17 250-50 Diskus] Furosemide [Lasix] 20 mg PO DAILY 07/18/17 Multivitamin [Daily Multiple 1 each PO DAILY 07/18/17 Vitamin] Gabapentin 300 mg PO TID #21 capsule 07/22/17 Oxycodone HCl/Acetaminophen 1 tab PO Q6H #20 tablet MDD 4 07/22/17 [Percocet 5-325 mg Tablet] Valacyclovir HCl [Valtrex -] 1,000 mg PO TID #21 tablet 07/22/17 Methylprednisolone [Medrol Dose 4 mg PO ASDIR #21 tablet 08/01/17 Lloyd] Valacyclovir HCl [Valtrex] 1,000 mg PO TID #15 tablet 08/01/17 REVIEW OF SYSTEMS CONSTITUTIONAL: Absent: fever, chills, diaphoresis, generalized weakness, malaise, loss of appetite, weight change HEENT: Absent: rhinorrhea, nasal congestion, throat pain, throat swelling, difficulty swallowing, mouth swelling, ear pain, eye pain, visual changes CARDIOVASCULAR: Absent: chest pain, syncope, palpitations, irregular heart rate, lightheadedness , peripheral edema RESPIRATORY: Present: cough, shortness of breath Absent: dyspnea with exertion, orthopnea, wheezing, stridor, hemoptysis GASTROINTESTINAL: Absent: abdominal pain, abdominal distension, nausea, vomiting, diarrhea, constipation, melena, hematochezia GENITOURINARY: Absent: dysuria, frequency, urgency, hesitancy, hematuria, flank pain, genital pain MUSCULOSKELETAL: Absent: myalgia, arthralgia, joint swelling, back pain, neck pain SKIN: Absent: rash, itching, pallor HEMATOLOGIC/IMMUNOLOGIC: Absent: easy bleeding, easy bruising, lymphadenopathy, frequent infections ENDOCRINE: Absent: unexplained weight gain, unexplained weight loss, heat intolerance, cold intolerance NEUROLOGIC: Absent: headache, focal weakness or paresthesias, dizziness, unsteady gait, seizure, mental status changes, bladder or bowel incontinence PSYCHIATRIC: Absent: anxiety, depression, suicidal or homicidal ideation, hallucinations. PHYSICAL EXAMINATION Vital Signs - 24 hr 08/16/17 14:40 Temperature 97.9 Fsupra Pulse Rate 85 Respiratory 18 Rate Blood Pressure 101/66 O2 Sat by Pulse 96 Oximetry (%) GENERAL: Elderly female, sitting comfortably in bed, able to speak a full sentence, Awake, alert, and fully oriented, in no acute distress, nasal canula in placec. HEAD: Normal with no signs of trauma. EYES: EOM intact, no pallor or icterus. EARS, NOSE, THROAT: Ears normal. Moist mucous membranes. NECK: Supple, No JVD, has a B/L supraclavicular mass, fluctuant, no crepitus ( chronic but has increased in size) LUNGS: Breath sounds equal, B/L diffuse wheezing +. HEART: Regular rate and rhythm, normal S1 and S2 without murmur,. ABDOMEN: Soft, nontender, not distended, normoactive bowel sounds, no guarding, no rebound, no masses. No hepatomegaly or splenomegaly. MUSCULOSKELETAL: Normal range of motion at all joints. No bony deformities or tenderness. No CVA tenderness. UPPER EXTREMITIES: 2+ pulses, warm, well-perfused. No cyanosis. No clubbing. No peripheral edema. LOWER EXTREMITIES: 2+ pulses, warm, well-perfused. No calf tenderness. No peripheral edema. NEUROLOGICAL: No facial droop, power 5/5 in all extremities, Cranial nerves II- XII intact. Normal speech. Gait not observed. PSYCHIATRIC: Cooperative. Good eye contact. Appropriate mood and affect. SKIN: Warm, dry, normal turgor, shingles rashes persists but fading away- located from left posterior side till the sternum. normal capillary refill. Laboratory Results - last 24 hr 08/16/17 08/16/17 15:22 15:22 WBC 8.6 RBC 3.27 L Hgb 9.6 L D Hct 29.5 L MCV 90.2 MCH 29.4 MCHC 32.6 RDW 17.0 H Plt Count 294 MPV 7.2 L Absolute Neuts (auto) 6.0 Neutrophils % 69.9 Lymphocytes % 16.5 Monocytes % 9.8 Eosinophils % 3.1 Basophils % 0.7 Nucleated RBC % 0 Sodium 144 Potassium 3.8 Chloride 108 H Carbon Dioxide 24 Anion Gap 12 BUN 19 H Creatinine 1.0 Creat Clearance w eGFR 52.69 Random Glucose 86 Calcium 8.6 Total Bilirubin 0.7 D AST 34 ALT 40 Alkaline Phosphatase 125 H Total Protein 6.5 Albumin 3.3 L ASSESSMENT/PLAN: Patient is an 87 year old female with significant past medical history of Atrial fibrillation on Pradaxa, CHF, COPD, HTH, Dx of Shingles presented to the ED with the chief complaints of " SOB". # COPD exacerbation c/o sob associated with productive sputum. Afebrile, hemodynamically stable Admitted in Med-Surg/Inpatient continue oxygen Duonebs Q4H Amador Albuterol PRN IV Solumedrol 60mg TID # Post herpetic neuralgia Rashes fading away, pain still persists Increase Gabapentin 300 mg PO BID # Normocytic anemia Will check Iron studies # B/L supraclavicular swelling Left > Right. it is chronic however, daughter mentions it has grown bigger in size. Was told that it was air many years ago USG to r/o any mass # CHF- not in exacerbation Euvolemic # Atrial fibrillation-rate controlled Continue Digoxin and Pradaxa # Hypertension- controlled Continue Cardizem # Hypertension Continue Lipitor # FEN Not on IV fluids, can tolerate PO Electrolytes WNL Sodium controlled diet # Prophylaxis For DVT: Heparin 5000 IU sq TID For GI: Not indicated # Code Status: Full Code # Dispo: Admitted in Med-Surg. Duration of stay unknown. Illness, Investigation and plan of care explained to the patient and her daughter. They verbalized understanding. Case discussed with Dr. Haider. Visit type - Emergency Visit Emergency Visit: Yes ED Registration Date: 08/16/17 Care time: The patient presented to the Emergency Department on the above date and was hospitalized for further evaluation of their emergent condition. - New Patient This patient is new to me today: Yes Date on this admission: 08/16/17 - Critical Care Critical Care patient: No
--- NOTE | 2017-08-16 18:07 | PN ---
Teaching Attending Note Name of Resident: Jose Cruz Murphy ATTENDING PHYSICIAN STATEMENT I saw and evaluated the patient. I reviewed the resident's note and discussed the case with the resident. I agree with the resident's findings and plan as documented. SUBJECTIVE:87yo F with PMH PMH of AFib (on Pradaxa), CHF, COPD, HTN, and recent diagnosis of shingles presented to the ER with SOB progressively worsening over the past 2weeks. assoc with productive cough. no relief with rescue inhaler. was on medrol dose pack which she completed 2 weeks ago. had some mild improvmeent but been progressively worsening. was not given abx. has never been hospitalized for COPD in the past. denies CP, fever, chills, N/V/C/D also c/o pain along dermatome where shingles was diagnosed 07/22. completed valtrex and was placed on gabapentin with no relief. was then given percocet for pain but causes dizzyness and vomiting and has not been taking it OBJECTIVE: Last Vital Signs Temp Pulse Resp BP Pulse Ox 97.9 F 85 18 101/66 96 08/16/17 14:40 08/16/17 14:40 08/16/17 14:40 08/16/17 14:40 08/16/17 14:40 General NAd HEENT soft swelling at medial clavicular head B/L no fluctuance or crepitus. not tender no erythema. trachea midline. CV S1 S2 irregular, no murmur Lungs coarse rhonchi, mild wheezing at bases Abdomen soft NT/ND obese Extremities no pedal edema skin mid thoracic along dermatome of healed/crusted scabed over. no tenderness ASSESSMENT AND PLAN: 87yo F with PMH PMH of AFib (on Pradaxa), CHF, COPD, HTN, and recent diagnosis of shingles presented to the ER with SOB progressively worsening over the past 2weeks 1. Acute COPD exacerbation- medicine admission. minimal improvement with cocktail given in the ER. cont medrol 60mg Q8H, Azithromycin. nebs RTC and prn for wheezing. supplemental oxygen as needed to maintain spO2 >90% 2. Normocytic anemia- no signs of bleeding. check iron studies. will need colonoscopy as outpatient. no indication for txn. trend Hgb 3. Postherpetic neuralgia- lesions are crusted over. completed valtrex. no relief on low dose gabapentin. will increase to 300mg BID. will titrate up to optimize relief. 4. Afib on pradaxa- cont home medications. cont pradaxa 5. CHF- no signs of volume overload. 6, HTn- controlled. cont home medication 7. DVT ppx- hep sq
[2017-08-16] MEDS ORDERED: ALBUTEROL SO4 2.5/IPRATROPIUM 0.5 INH SOL 3 ML VIAL.NEB. NEB PRN (19:02)
[2017-08-16] MEDS ORDERED: diazePAM 5 MG TABLET PO PRN (19:03)
--- NOTE | 2017-08-16 19:22 | HP ---
CHIEF COMPLAINT: SOB, cough PCP: Cardio: Francisco HISTORY OF PRESENT ILLNESS: Pt is an 87 y/o F with PMH COPD, CHF, HTN, AF (on pradaxa), recent diagnosis of shingles who presents to ED with complaint of SOB x several weeks. SOB is constant and slowly worsening, associated with cough productive of green sputum. Denies fever, chills, sick contacts, travel, abd pain, n/v/d. Pt has had shingles recently and still has pain and residual rash. ER course was notable for: (1) Hb 9.6, Alk phos 125 (2) CXR no acute lung disease (3) duonebs, solumedrol, advair, zithromax Recent Travel: denies PAST MEDICAL HISTORY: COPD, CHF, HTN, AF (on pradaxa), HLD, shingles PAST SURGICAL HISTORY: Social History: Smoking: denies Alcohol: denies Drugs: denies Family History: denies Allergies levofloxacin Allergy (Verified 08/01/17 08:17) Rash oxycodone [From Percocet] Allergy (Verified 08/16/17 14:57) HOME MEDICATIONS: Home Medications Medication Instructions Recorded Atorvastatin Ca [Lipitor] 20 mg PO DAILY 07/07/14 Diltiazem HCl [Cardizem LA] 240 mg PO DAILY 07/07/14 Paroxetine HCl [Paxil -] 40 mg PO DAILY 07/07/14 Potassium Chloride [K-Dur] 10 meq PO DAILY 07/07/14 Albuterol Sulfate Inhaler - 1 - 2 inh PO Q4H PRN 07/18/17 [Ventolin HFA Inhaler -] Fluticasone/Salmeterol [Advair 1 each IH DAILY 07/18/17 250-50 Diskus] Multivitamin [Daily Multiple 1 each PO DAILY 07/18/17 Vitamin] Dabigatran Etexilate Mesylate 150 mg PO BID 08/16/17 [Pradaxa -] Diazepam [Valium] 5 mg PO DAILY PRN 08/16/17 Digoxin [Lanoxin -] 0.125 mg PO DAILY 08/16/17 Gabapentin 300 mg PO BID 08/16/17 REVIEW OF SYSTEMS CONSTITUTIONAL: Absent: fever, chills, diaphoresis, generalized weakness, malaise, loss of appetite, weight change HEENT: Absent: rhinorrhea, nasal congestion, throat pain, throat swelling, difficulty swallowing, mouth swelling, ear pain, eye pain, visual changes CARDIOVASCULAR: Left lateral superficial chest pain Absent: , syncope, palpitations, irregular heart rate, lightheadedness, peripheral edema RESPIRATORY: cough, shortness of breath Absent: , dyspnea with exertion, orthopnea, wheezing, stridor, hemoptysis GASTROINTESTINAL: Absent: abdominal pain, abdominal distension, nausea, vomiting, diarrhea, constipation, melena, hematochezia GENITOURINARY: Absent: dysuria, frequency, urgency, hesitancy, hematuria, flank pain, genital pain MUSCULOSKELETAL: Absent: myalgia, arthralgia, joint swelling, back pain, neck pain SKIN: Absent: rash, itching, pallor HEMATOLOGIC/IMMUNOLOGIC: Absent: easy bleeding, easy bruising, lymphadenopathy, frequent infections ENDOCRINE: Absent: unexplained weight gain, unexplained weight loss, heat intolerance, cold intolerance NEUROLOGIC: Absent: headache, focal weakness or paresthesias, dizziness, unsteady gait, seizure, mental status changes, bladder or bowel incontinence PSYCHIATRIC: Absent: anxiety, depression, suicidal or homicidal ideation, hallucinations. PHYSICAL EXAMINATION Vital Signs - 24 hr 08/16/17 14:40 Temperature 97.9 F Pulse Rate 85 Respiratory 18 Rate Blood Pressure 101/66 O2 Sat by Pulse 96 Oximetry (%) Gen: No respiratory distress HEENT: NCAT, PERRLA, EOMI Neck: supple, no jvd, no thyromegally, b/l supraclavicular fluctuant ? air- filled fullness Cardiac: RRR, norm s1s2, no m/r/g Pulm: diffuse wheezing Abd: soft, nontender Ext: trace pedal edema, 2+ pulses Neuro: no focal deficits. sensory motor intact throughout Laboratory Results - last 24 hr 08/16/17 08/16/17 15:22 15:22 WBC 8.6 RBC 3.27 L Hgb 9.6 L D Hct 29.5 L MCV 90.2 MCH 29.4 MCHC 32.6 RDW 17.0 H Plt Count 294 MPV 7.2 L Absolute Neuts (auto) 6.0 Neutrophils % 69.9 Lymphocytes % 16.5 Monocytes % 9.8 Eosinophils % 3.1 Basophils % 0.7 Nucleated RBC % 0 Sodium 144 Potassium 3.8 Chloride 108 H Carbon Dioxide 24 Anion Gap 12 BUN 19 H Creatinine 1.0 Creat Clearance w eGFR 52.69 Random Glucose 86 Calcium 8.6 Total Bilirubin 0.7 D AST 34 ALT 40 Alkaline Phosphatase 125 H Total Protein 6.5 Albumin 3.3 L ASSESSMENT/PLAN: This is a pleasant 87 y/o F with PMH COPD and shingles who presents to ED with complaint of SOB. Pt is admitted for COPD exacerbation #COPD exacerbation -Duonebs -Advair -Azithromycin -Solumedrol #Shingles -Gabapentin -Valium #CHF -Euvolemic #Afib -Digoxin -Dabigatran #HTN -Cardizem #HLD -Lipitor #FEN -Not on fluids -lytes wnl -Na-controlled diet #PPx -Hep SubQ #Dispo -Medsurg for COPD exacerbation Jose Cruz Murphy MD PGY-1 IM Visit type - Emergency Visit Emergency Visit: Yes ED Registration Date: 08/16/17 Care time: The patient presented to the Emergency Department on the above date and was hospitalized for further evaluation of their emergent condition. - New Patient This patient is new to me today: Yes Date on this admission: 08/16/17 - Critical Care Critical Care patient: No Hospitalist Screening - Colonoscopy Questionnaire Colonoscopy Questionnaire: Colonoscopy Questionnaire - Patient: 50 - 75 years old and never had a screening colonoscopy: Unknown History of colon or rectal polyps, or CA: Unknown History of IBD, Crohn's disease or UC: Unknown History of abdominal radiation therapy as a child: Unknown - Relative: 1 with colon or rectal CA, or polyps at age 60 or younger: Unknown Colon or rectal CA diagnosed at age 45 or younger: Unknown Multiple relatives with colon or rectal CA: Unknown - Outcome: Screening Result: Negative Screen
[2017-08-16 20:38] VITALS: BMI 31.7
[2017-08-16] MEDS: methylPREDNISolone NA SUCC 40 MG/1 ML VIAL IVPUSH SCH (22:01)
[2017-08-16] MEDS: DABIGATRAN ETEXILATE MESYLATE 150 MG CAPSULE PO SCH (22:02)
[2017-08-16] MEDS: GABAPENTIN 300 MG CAPSULE (FP) PO SCH (22:02)
[2017-08-16] MEDS: ATORVASTATIN CA 20 MG TABLET (FP) PO SCH (22:02)
[2017-08-16] MEDS: BUDESONIDE/FORMETEROL FUMARATE 160/4.5 mcg INHALER IH SCH (22:02)
[2017-08-17] MEDS: ALBUTEROL SO4 2.5/IPRATROPIUM 0.5 INH SOL 3 ML VIAL.NEB. NEB SCH ×3 (07:35→20:38)
[2017-08-17 08:57] LABS: ALBUMIN 3.1 g/dl (3.4-5.0); ALK PHOS 135 U/L (45-117); ANION GAP 11 (8-16); BILIRUBIN,TOTAL 0.7 mg/dL (0.2-1.0); BLOOD UREA NITROGEN 19 mg/dL (7-18); CALCIUM 8.7 mg/dL (8.5-10.1); CHLORIDE 109 mmol/L (98-107); CO2 23 mmol/L (21-32); CREATININE 0.9 mg/dL (0.55-1.02); GLUCOSE,RANDOM 156 mg/dL (74-106); MAGNESIUM 2.1 mg/dL (1.8-2.4); PHOSPHOROUS 2.8 mg/dL (2.5-4.9); POTASSIUM 3.6 mmol/L (3.5-5.1); SGOT/AST 33 U/L (15-37); SGPT/ALT 42 U/L (12-78); SODIUM 143 mmol/L (136-145); TOT PROT 6.4 g/dl (6.4-8.2)
[2017-08-17] MEDS ORDERED: PNEUMOC 13-VAL CONJ-DIP CRM/PF 0.5 ML DISP.SYRIN IM ONE (09:00)
[2017-08-17 09:03] LABS: BASO % 0.1 % (0-2.0); HEMATOCRIT 29.6 % (32.4-45.2); LYMPH % 8.6 % (8-40); MCH 30.1 pg (25.7-33.7); MCHC 33.8 g/dl (32.0-36.0); MEAN PLT VOLUME 7.5 fl (7.5-11.1); MONO % 0.6 % (3.8-10.2); NEUT % 90.7 % (42.8-82.8); PLATELET COUNT 273 K/MM3 (134-434); RBC 3.32 M/mm3 (3.60-5.2); RDW 17.7 % (11.6-15.6); WHITE BLOOD COUNT 7.9 K/mm3 (4.0-10.0)
[2017-08-17] MEDS ORDERED: PT OWN MED DRAWER 7, Y5N ONE ×2 (09:45→19:44)
[2017-08-17] MEDS ORDERED: PARoxetine HCL 10 MG TABLET (FP) ONE (09:45)
[2017-08-17] MEDS: BUDESONIDE/FORMETEROL FUMARATE 160/4.5 mcg INHALER IH SCH ×2 (10:07→21:17)
[2017-08-17] MEDS: GABAPENTIN 300 MG CAPSULE (FP) PO SCH ×3 (10:08→21:14)
[2017-08-17] MEDS: MULTIVITAMINS (DAILY MVI) TABLET (FP) PO SCH (10:08)
[2017-08-17] MEDS: POTASSIUM CHLORIDE TABS 10 MEQ TABLET.ER (FP) PO SCH (10:08)
[2017-08-17] MEDS: DIGOXIN 0.125 MG TABLET (FP) PO SCH (10:08)
[2017-08-17] MEDS: DABIGATRAN ETEXILATE MESYLATE 150 MG CAPSULE PO SCH ×2 (10:09→21:15)
[2017-08-17] MEDS: PARoxetine HCL 20 MG TABLET (FP) PO SCH (10:09)
[2017-08-17] MEDS: methylPREDNISolone NA SUCC 40 MG/1 ML VIAL IVPUSH SCH ×2 (10:09→21:17)
[2017-08-17] MEDS: HEPARIN NA (PORCINE) 5,000 UNITS/ML 1ML VIAL SQ SCH ×2 (10:09→14:31)
[2017-08-17] MEDS: AZITHROMYCIN IVPB 250 MG in DEXTROSE 5%-WATER - 250 ML IVPB SCH (13:09)
--- NOTE | 2017-08-17 17:22 | PN ---
Teaching Attending Note Name of Resident: Jose Cruz Murphy ATTENDING PHYSICIAN STATEMENT I saw and evaluated the patient. I reviewed the resident's note and discussed the case with the resident. I agree with the resident's findings and plan as documented. SUBJECTIVE:continues to have non productive cough but breathing is improved. states her pain from her rash has dramatically improved. denies CP, fever,chills , N/V/C/D OBJECTIVE: Last Vital Signs Temp Pulse Resp BP Pulse Ox 98.3 F 76 20 149/62 97 08/17/17 13:20 08/17/17 13:20 08/17/17 13:20 08/17/17 13:20 08/17/17 09:00 General NAd HEENT soft swelling at medial clavicular head B/L no fluctuance or crepitus. not tender no erythema. trachea midline. CV S1 S2 irregular, no murmur Lungs coarse rhonchi, no wheezing Abdomen soft NT/ND obese Extremities no pedal edema skin mid thoracic along dermatome of healed/crusted scabed over. no tenderness ASSESSMENT AND PLAN: 87yo F with PMH PMH of AFib (on Pradaxa), CHF, COPD, HTN, and recent diagnosis of shingles presented to the ER with SOB progressively worsening over the past 2weeks 1. Acute COPD exacerbation- clinically improved. saturating 96% on RA. will titrate down steroids to medrol 60mg BID. can likely transition to po tomorrow. cont azithro day 2. can complete 5 day course. nebs RTC and prn for wheezing. supplemental oxygen as needed to maintain spO2 >90% 2. Normocytic anemia- no signs of bleeding. check iron studies. will need colonoscopy as outpatient. no indication for txn. trend Hgb 3. Postherpetic neuralgia- lesions are crusted over. completed valtrex. improvemenet on gabapentin. cont current dosing of 300mg TID. can continue for several weeks and titrate down by PMD 4. Afib on pradaxa- cont home medications. cont pradaxa 5. CHF- no signs of volume overload. 6, HTn- controlled. cont home medication 7. DVT ppx- hep sq 8. spoke with daughter present at bedside. all questions answered. possible d/c tomorrow
--- NOTE | 2017-08-17 20:09 | PN ---
Physical Exam: SUBJECTIVE: Patient seen and examined at bedside. No complaints. Feels much better. OBJECTIVE: Vital Signs Period Temp Pulse Resp BP Sys/Menendez Pulse Ox Last 24 Hr 97.7 F-98.3 F 76-101 18-20 133-149/62-96 97 Gen: No respiratory distress HEENT: NCAT, PERRLA, EOMI Neck: supple, no jvd, no thyromegally, b/l supraclavicular fluctuant ? air- filled fullness Cardiac: RRR, norm s1s2, no m/r/g Pulm: no wheezing Abd: soft, nontender Ext: trace pedal edema, 2+ pulses Neuro: no focal deficits. sensory motor intact throughout Laboratory Results - last 24 hr 08/16/17 08/17/17 08/17/17 20:39 06:00 07:00 WBC RBC Hgb Hct MCV MCH MCHC RDW Plt Count MPV Absolute Neuts (auto) Neutrophils % Lymphocytes % Monocytes % Eosinophils % Basophils % Nucleated RBC % Sodium 143 Potassium 3.6 Chloride 109 H Carbon Dioxide 23 Anion Gap 11 BUN 19 H Creatinine 0.9 Creat Clearance w eGFR 59.51 Random Glucose 156 H Calcium 8.7 Phosphorus 2.8 Magnesium 2.1 Ferritin 21.9 Total Bilirubin 0.7 AST 33 ALT 42 Alkaline Phosphatase 135 H Creatine Kinase 96 Troponin I < 0.02 B-Natriuretic Peptide 1771.40 H Total Protein 6.4 Albumin 3.1 L 08/17/17 07:26 WBC 7.9 RBC 3.32 L Hgb 10.0 L Hct 29.6 L MCV 89.0 MCH 30.1 MCHC 33.8 RDW 17.7 H Plt Count 273 MPV 7.5 Absolute Neuts (auto) 7.2 Neutrophils % 90.7 H Lymphocytes % 8.6 D Monocytes % 0.6 L D Eosinophils % 0.0 D Basophils % 0.1 Nucleated RBC % 0 Sodium Potassium Chloride Carbon Dioxide Anion Gap BUN Creatinine Creat Clearance w eGFR Random Glucose Calcium Phosphorus Magnesium Ferritin Total Bilirubin AST ALT Alkaline Phosphatase Creatine Kinase Troponin I B-Natriuretic Peptide Total Protein Albumin Active Medications Generic Name Dose Route Start Last Admin Trade Name Freq PRN Reason Stop Dose Admin Albuterol/Ipratropium 1 amp 08/16/17 19:02 Duoneb - NEB Q4H PRN SHORTNESS OF BREATH Albuterol/Ipratropium 1 amp 08/17/17 20:00 Duoneb - NEB RTID GERTRUDE Atorvastatin Calcium 20 mg 08/16/17 22:00 08/16/17 22:02 Lipitor - PO 20 mg HS GERTRUDE Administration Budesonide/Formoterol Fumarate 2 puff 08/16/17 22:00 08/17/17 10:07 Symbicort 160/4.5mcg - IH 2 puff BID GERTRUDE Administration Dabigatran 150 mg 08/16/17 22:00 08/17/17 10:09 Pradaxa - PO 150 mg BID GERTRUDE Administration Diazepam 5 mg 08/16/17 19:03 Valium - PO Q24H PRN MUSCLE SPASMS Digoxin 0.125 mg 08/17/17 10:00 08/17/17 10:08 Lanoxin - PO 0.125 mg DAILY GERTRUDE Administration Diltiazem HCl 240 mg 08/17/17 10:00 08/17/17 10:08 Cardizem Cd - PO 240 mg DAILY GERTRUDE Administration Gabapentin 300 mg 08/17/17 14:00 08/17/17 14:31 Neurontin - PO 300 mg TID GERTRUDE Administration Azithromycin 250 mg/ Dextrose 250 mls @ 250 mls/hr 08/17/17 10:00 08/17/17 13 :09 IVPB 250 mls/hr DAILY GERTRUDE Administration Methylprednisolone Sodium Succinate 60 mg 08/17/17 22:00 Solu-Medrol - IVPUSH BID [facility] Multivitamins/Minerals/Vitamin C 1 tab 08/17/17 10:00 08/17/17 10:08 Tab-A-Vit - PO 1 tab DAILY GERTRUDE Administration Paroxetine HCl 40 mg 08/17/17 10:00 08/17/17 10:09 Paxil - PO 40 mg DAILY GERTRUDE Administration Potassium Chloride 10 meq 08/17/17 10:00 08/17/17 10:08 K-Dur - PO 10 meq DAILY GERTRUDE Administration ASSESSMENT/PLAN: This is a pleasant 87 y/o F with PMH COPD and shingles who presents to ED with complaint of SOB. Pt is admitted for COPD exacerbation #COPD exacerbation -Duonebs -Advair -Azithromycin -Solumedrol taper down #Shingles -Gabapentin increased -Valium #CHF -Euvolemic #Afib -Digoxin -Dabigatran #HTN -Cardizem #HLD -Lipitor #FEN -Not on fluids -lytes wnl -Na-controlled diet #PPx -on Dabigatran #Dispo -Medsurg for COPD exacerbation Jose Cruz Murphy MD PGY-1 IM Visit type - Emergency Visit Emergency Visit: No - New Patient This patient is new to me today: No - Critical Care Critical Care patient: No - Discharge Referral Referred to [facility] Med P.C[facility] No
[2017-08-17] MEDS: ATORVASTATIN CA 20 MG TABLET (FP) PO SCH (21:14)
[2017-08-18] MEDS: GABAPENTIN 300 MG CAPSULE (FP) PO SCH ×3 (05:09→22:25)
[2017-08-18 06:36] LABS: BASO % 0.1 % (0-2.0); HEMATOCRIT 28.6 % (32.4-45.2); HEMOGLOBIN 9.3 GM/dL (10.7-15.3); LYMPH % 4.4 % (8-40); MCH 29.3 pg (25.7-33.7); MCHC 32.6 g/dl (32.0-36.0); MEAN CELL VOLUME 89.8 fl (80-96); MEAN PLT VOLUME 7.6 fl (7.5-11.1); MONO % 1.6 % (3.8-10.2); NEUT % 93.9 % (42.8-82.8); PLATELET COUNT 263 K/MM3 (134-434); RBC 3.18 M/mm3 (3.60-5.2); RDW 17.5 % (11.6-15.6); WHITE BLOOD COUNT 17.2 K/mm3 (4.0-10.0)
[2017-08-18] MEDS: ALBUTEROL SO4 2.5/IPRATROPIUM 0.5 INH SOL 3 ML VIAL.NEB. NEB SCH ×2 (07:15→13:49)
[2017-08-18 07:24] LABS: ANION GAP 8 (8-16); BLOOD UREA NITROGEN 26 mg/dL (7-18); CALCIUM 8.8 mg/dL (8.5-10.1); CHLORIDE 107 mmol/L (98-107); CO2 25 mmol/L (21-32); GLUCOSE,RANDOM 137 mg/dL (74-106); POTASSIUM 3.8 mmol/L (3.5-5.1); SODIUM 140 mmol/L (136-145)
--- NOTE | 2017-08-18 08:19 | PN ---
Physical Exam: SUBJECTIVE: Patient seen and examined at bedside. No complaints. Pt does get SOB with activity. OBJECTIVE: Vital Signs Period Temp Pulse Resp BP Sys/Menendez Pulse Ox Last 24 Hr 98 F-98.3 F 76-98 18-20 133-157/61-91 97-97 Gen: No respiratory distress HEENT: NCAT, PERRLA, EOMI Neck: supple, no jvd, no thyromegally, b/l supraclavicular fluctuant ? air- filled fullness Cardiac: RRR, norm s1s2, no m/r/g Pulm: no wheezing Abd: soft, nontender Ext: trace pedal edema, 2+ pulses Neuro: no focal deficits. sensory motor intact throughout Laboratory Results - last 24 hr 08/17/17 08/17/17 08/17/17 06:00 07:00 07:26 WBC 7.9 RBC 3.32 L Hgb 10.0 L Hct 29.6 L MCV 89.0 MCH 30.1 MCHC 33.8 RDW 17.7 H Plt Count 273 MPV 7.5 Absolute Neuts (auto) 7.2 Neutrophils % 90.7 H Lymphocytes % 8.6 D Monocytes % 0.6 L D Eosinophils % 0.0 D Basophils % 0.1 Nucleated RBC % 0 Sodium 143 Potassium 3.6 Chloride 109 H Carbon Dioxide 23 Anion Gap 11 BUN 19 H Creatinine 0.9 Creat Clearance w eGFR 59.51 Random Glucose 156 H Calcium 8.7 Phosphorus 2.8 Magnesium 2.1 Ferritin 21.9 Total Bilirubin 0.7 AST 33 ALT 42 Alkaline Phosphatase 135 H Total Protein 6.4 Albumin 3.1 L 08/18/17 08/18/17 05:15 05:15 WBC 17.2 H D RBC 3.18 L Hgb 9.3 L Hct 28.6 L MCV 89.8 MCH 29.3 MCHC 32.6 RDW 17.5 H Plt Count 263 MPV 7.6 Absolute Neuts (auto) 16.2 Neutrophils % 93.9 H Lymphocytes % 4.4 L D Monocytes % 1.6 L D Eosinophils % 0.0 Basophils % 0.1 Nucleated RBC % 0 Sodium 140 Potassium 3.8 Chloride 107 Carbon Dioxide 25 Anion Gap 8 BUN 26 H Creatinine 1.0 Creat Clearance w eGFR Random Glucose 137 H Calcium 8.8 Phosphorus Magnesium Ferritin Total Bilirubin AST ALT Alkaline Phosphatase Total Protein Albumin Active Medications Generic Name Dose Route Start Last Admin Trade Name Freq PRN Reason Stop Dose Admin Albuterol/Ipratropium 1 amp 08/16/17 19:02 Duoneb - NEB Q4H PRN SHORTNESS OF BREATH Albuterol/Ipratropium 1 amp 08/17/17 20:00 08/18/17 07:15 Duoneb - NEB 1 amp RTID GERTRUDE Administration Atorvastatin Calcium 20 mg 08/16/17 22:00 08/17/17 21:14 Lipitor - PO 20 mg HS GERTRUDE Administration Budesonide/Formoterol Fumarate 2 puff 08/16/17 22:00 08/17/17 21:17 Symbicort 160/4.5mcg - IH 2 puff BID GERTRUDE Administration Dabigatran 150 mg 08/16/17 22:00 08/17/17 21:15 Pradaxa - PO 150 mg BID GERTRUDE Administration Diazepam 5 mg 08/16/17 19:03 Valium - PO Q24H PRN MUSCLE SPASMS Digoxin 0.125 mg 08/17/17 10:00 08/17/17 10:08 Lanoxin - PO 0.125 mg DAILY GERTRUDE Administration Diltiazem HCl 240 mg 08/17/17 10:00 08/17/17 10:08 Cardizem Cd - PO 240 mg DAILY GERTRUDE Administration Gabapentin 300 mg 08/17/17 14:00 08/18/17 05:09 Neurontin - PO 300 mg TID GERTRUDE Administration Azithromycin 250 mg/ Dextrose 250 mls @ 250 mls/hr 08/17/17 10:00 08/17/17 13 :09 IVPB 250 mls/hr DAILY GERTRUDE Administration Methylprednisolone Sodium Succinate 60 mg 08/17/17 22:00 08/17/17 21:17 Solu-Medrol - IVPUSH 60 mg BID GERTRUDE Administration Multivitamins/Minerals/Vitamin C 1 tab 08/17/17 10:00 08/17/17 10:08 Tab-A-Vit - PO 1 tab DAILY GERTRUDE Administration Paroxetine HCl 40 mg 08/17/17 10:00 08/17/17 10:09 Paxil - PO 40 mg DAILY GERTRUDE Administration Potassium Chloride 10 meq 08/17/17 10:00 08/17/17 10:08 K-Dur - PO 10 meq DAILY GERTRUDE Administration ASSESSMENT/PLAN: This is a pleasant 87 y/o F with PMH COPD and shingles who presents to ED with complaint of SOB. Pt is admitted for COPD exacerbation #COPD exacerbation -Duonebs changed to ipratropium -Advair -Azithromycin -Solumedrol taper down #Shingles -Gabapentin increased -Valium #CHF -per cards: diastolic: normal IVEF. Moderately severe MR -Euvolemic #Afib -Digoxin -Dabigatran #HTN -Cardizem #HLD -Lipitor #FEN -Not on fluids -lytes wnl -Na-controlled diet #PPx -on Dabigatran #Dispo -Medsurg for COPD exacerbation Jose Cruz Murphy MD PGY-1 IM Visit type - Emergency Visit Emergency Visit: No - New Patient This patient is new to me today: No - Critical Care Critical Care patient: No - Discharge Referral Referred to [facility] Med P.C.: No
[2017-08-18] MEDS ORDERED: PARoxetine HCL 10 MG TABLET (FP) ONE (09:11)
[2017-08-18] MEDS ORDERED: PT OWN MED DRAWER 7, Y5N ONE ×2 (09:11→21:07)
[2017-08-18 09:25] LABS: ACANTHOCYTES 1+; PLATELET ESTIMATE NORMAL
[2017-08-18] MEDS: methylPREDNISolone NA SUCC 40 MG/1 ML VIAL IVPUSH SCH ×2 (09:55→22:24)
[2017-08-18] MEDS: DIGOXIN 0.125 MG TABLET (FP) PO SCH (09:55)
[2017-08-18] MEDS: POTASSIUM CHLORIDE TABS 10 MEQ TABLET.ER (FP) PO SCH (09:55)
[2017-08-18] MEDS: PARoxetine HCL 20 MG TABLET (FP) PO SCH (09:56)
[2017-08-18] MEDS: DABIGATRAN ETEXILATE MESYLATE 150 MG CAPSULE PO SCH ×2 (09:56→22:25)
[2017-08-18] MEDS: MULTIVITAMINS (DAILY MVI) TABLET (FP) PO SCH (09:56)
[2017-08-18] MEDS: BUDESONIDE/FORMETEROL FUMARATE 160/4.5 mcg INHALER IH SCH ×2 (09:56→22:25)
[2017-08-18] MEDS: AZITHROMYCIN IVPB 250 MG in DEXTROSE 5%-WATER - 250 ML IVPB SCH (10:25)
--- NOTE | 2017-08-18 13:24 | PN ---
Teaching Attending Note Name of Resident: Jose Cruz Murphy ATTENDING PHYSICIAN STATEMENT I saw and evaluated the patient. I reviewed the resident's note and discussed the case with the resident. I agree with the resident's findings and plan as documented. SUBJECTIVE:states breathing feels worse today. + non productive cough. had difficulty ambulating due to the breathing. states pain in the side has now improved. denies CP, fever, chills, N/V/C/D OBJECTIVE: Last Vital Signs Temp Pulse Resp BP Pulse Ox 98.4 F 58 L 20 147/86 94 L 08/18/17 10:00 08/18/17 10:11 08/18/17 10:00 08/18/17 10:00 08/18/17 10:11 General NAd HEENT soft swelling at medial clavicular head B/L no fluctuance or crepitus. not tender no erythema. trachea midline. CV S1 S2 irregular, no murmur Lungs coarse rhonchi, no wheezing Abdomen soft NT/ND obese Extremities no pedal edema skin mid thoracic along dermatome of healed/crusted scabed over. no tenderness ASSESSMENT AND PLAN: 87yo F with PMH PMH of AFib (on Pradaxa), CHF, COPD, HTN, and recent diagnosis of shingles presented to the ER with SOB progressively worsening over the past 2weeks 1. Acute COPD exacerbation- feels more short of breath. saturating 96% on RA but feels the need to have supplemental oxygen. pre and post done but was unable to perform well on 6min walk test. will cont IV steroids for now at current dosing. cont azithro day 3. can complete 5 day course. nebs RTC and prn for wheezing. supplemental oxygen as needed to maintain spO2 >90% 2. Normocytic anemia- no signs of bleeding. iron studies pending. will need colonoscopy as outpatient. no indication for txn. trend Hgb 3. Postherpetic neuralgia- lesions are crusted over. completed valtrex. improvement on gabapentin. cont current dosing of 300mg TID. can continue for several weeks and titrate down by PMD 4. Afib on pradaxa- cont home medications. cont pradaxa 5. diastolic CHF- no signs of volume overload. 6, HTn- controlled. cont home medication 7. DVT ppx- hep sq 8. spoke with son present at bedside. all questions answered. will have PT eval and monitor pt overnight
[2017-08-18] MEDS ORDERED: IPRATROPIUM BR 0.02% 0.5 MG/2.5 ML VIAL.NEB. NEB PRN (16:30)
[2017-08-18] MEDS: IPRATROPIUM BR 0.02% 0.5 MG/2.5 ML VIAL.NEB. NEB SCH ×2 (18:07→21:39)
[2017-08-18] MEDS: ATORVASTATIN CA 20 MG TABLET (FP) PO SCH (22:25)
[2017-08-19] MEDS: GABAPENTIN 300 MG CAPSULE (FP) PO SCH ×3 (06:04→22:04)
[2017-08-19 06:06] LABS: SERUM IRON SATURATION 6 % (15-55); TOTAL IRON BINDING CAPACITY 397 ug/dL (250-450); TRANSFERRIN 307 mg/dL (200-370); UIBC 372 ug/dL (118-369)
[2017-08-19] MEDS: IPRATROPIUM BR 0.02% 0.5 MG/2.5 ML VIAL.NEB. NEB SCH ×4 (07:15→20:58)
--- NOTE | 2017-08-19 08:32 | EKG ---
Test Reason : Blood Pressure : / mmHG Vent. 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
--- NOTE | 2017-08-19 08:38 | CON.CARD ---
Consult - History of Present Illness History of Present Illness: Patient is an 87 year old female presented to the ED with the chief complaints of " SOB". As per the patient, she had SOB since several weeks, progressively getting worse. No h/o Orthopnea or PND. SOB is associated with productive sputum , describes it as greenish yellowish sputum. Denies fever, chills, rigors or sweating. No sick contacts. Patient was seen by her PMD who gave her steroids for 5 days without any significant relief. Hence came in to the ED for further evaluation. Patient was recently diagnosed to have Shingles (07/22/2017) was given Valtrex, Gabapentin and Percocet. However percocet caused dizziness and SOB. She reports she has excruciating pain from Shingles and Gabapentin is not helping with her pain. Bowel/Bladder habit normal. Sleep/Appetite normal prior to her illness. ER course was notable for: (1) Afebrile, hemodynamically stable, on 2L oxygen; H/H 9.6/29.5 (2) CXR: No acute pathology (3) Azithromycin, Solumedrol, Albuterol [facility] Cardiac Cath [facility] 05-10-17 non obstructive CAD mild to moderate pulmonary hypertension PASP up to 45 mmHg, +1 MR A. Fib 2010 Asthma HTN Hyperlipidemia Negative MIBI stress test 07-09-14 SVT SEvere MR TR ECHO 2017 - Past Medical History Cardio/Vascular: Yes: AFIB, CHF, Mitral Insufficiency Pulmonary: Yes: Asthma. No: Cancer Psych: Yes: Anxiety - Past Surgical History Past Surgical History: Yes: Cholecystectomy - Alcohol/Substance Use Hx Alcohol Use: No - Smoking History Smoking history: Never smoked Have you smoked in the past 12 months: No - Social History History of Recent Travel: No Home Medications - Allergies Allergies/Adverse Reactions: Allergies Allergy/AdvReac Type Severity Reaction Status Date / Time levofloxacin Allergy Rash Verified 08/01/17 08:17 oxycodone [From Percocet] Allergy Verified 08/16/17 14:57 - Home Medications Home Medications: Ambulatory Orders Atorvastatin Ca [Lipitor] 20 mg PO DAILY 07/07/14 Diltiazem HCl [Cardizem LA] 240 mg PO DAILY 07/07/14 Paroxetine HCl [Paxil -] 40 mg PO DAILY 07/07/14 Potassium Chloride [K-Dur] 10 meq PO DAILY 07/07/14 Albuterol Sulfate Inhaler - [Ventolin HFA Inhaler -] 1 - 2 inh PO Q4H PRN Fluticasone/Salmeterol [Advair 250-50 Diskus] 1 each IH DAILY 07/18/17 Multivitamin [Daily Multiple Vitamin] 1 each PO DAILY 07/18/17 Dabigatran Etexilate Mesylate [Pradaxa -] 150 mg PO BID 08/16/17 Diazepam [Valium] 5 mg PO DAILY PRN 08/16/17 Digoxin [Lanoxin -] 0.125 mg PO DAILY 08/16/17 Gabapentin 300 mg PO BID 08/16/17 Review of Systems - Review of Systems Constitutional: reports: No Symptoms Eyes: reports: No Symptoms HENT: reports: No Symptoms Neck: reports: No Symptoms Cardiovascular: reports: No Symptoms Respiratory: reports: SOB Gastrointestinal: reports: No Symptoms Genitourinary: reports: No Symptoms Breasts: reports: No Symptoms Reported Musculoskeletal: reports: No Symptoms Integumentary: reports: No Symptoms Neurological: reports: No Symptoms Endocrine: reports: No Symptoms Hematology/Lymphatic: reports: No Symptoms Psychiatric: reports: No Symptoms Vital Signs: Vital Signs Temperature 97.9 F 08/19/17 06:01 Pulse Rate 104 H 08/19/17 06:01 Respiratory Rate 20 08/19/17 06:01 Blood Pressure 138/74 08/19/17 06:01 O2 Sat by Pulse Oximetry (%) 96 08/18/17 21:00 Constitutional: Yes: Well Nourished, No Distress, Calm Eyes: Yes: WNL, Conjunctiva Clear, EOM Intact HENT: Yes: WNL, Atraumatic, Normocephalic Neck: Yes: WNL, Supple, Trachea Midline Respiratory: Yes: WNL, Regular, CTA Bilaterally Gastrointestinal: Yes: WNL, Normal Bowel Sounds Renal/: Yes: WNL Cardiovascular: Yes: Pulse Irregular Heart Sounds: Yes: S1, S2 Musculoskeletal: Yes: WNL Extremities: Yes: WNL Integumentary: Yes: WNL Neurological: Yes: WNL, Alert, Oriented ...Motor Strength: WNL Psychiatric: Yes: WNL, Alert, Oriented - Other Data Labs, Other Data: CBC, BMP 08/18/17 05:15 08/18/17 05:15 Imaging - Results Chest X-ray: Image Reviewed (cm increased markings) EKG: Image Reviewed (af rep abn septal infarct) Problem List - Problems (1) Cough Code(s): R05 - COUGH (2) Asthma Code(s): J45.909 - UNSPECIFIED ASTHMA, UNCOMPLICATED (3) Atrial fibrillation Code(s): I48.91 - UNSPECIFIED ATRIAL FIBRILLATION Qualifiers: Atrial fibrillation type: chronic atrial fibrillation Qualified Code(s): I48.2 - Chronic atrial fibrillation (4) Back pain with radiation Code(s): M54.9 - DORSALGIA, UNSPECIFIED (5) CHF (congestive heart failure) Code(s): I50.9 - HEART FAILURE, UNSPECIFIED (6) Chest pain Code(s): R07.9 - CHEST PAIN, UNSPECIFIED (7) Colitis Code(s): K52.9 - NONINFECTIVE GASTROENTERITIS AND COLITIS, UNSPECIFIED (8) Dyspnea Code(s): R06.00 - DYSPNEA, UNSPECIFIED (9) Hyperlipemia Code(s): E78.5 - HYPERLIPIDEMIA, UNSPECIFIED (10) Knee pain, right Code(s): M25.561 - PAIN IN RIGHT KNEE Qualifiers: Chronicity: acute Qualified Code(s): M25.561 - Pain in right knee (11) Mitral regurgitation Code(s): I34.0 - NONRHEUMATIC MITRAL (VALVE) INSUFFICIENCY (12) Rib injury Code(s): [id number] - (13) Shingles Code(s): B02.9 - ZOSTER WITHOUT COMPLICATIONS Qualifiers: Herpes zoster complications: without complications Qualified Code(s): B02.9 - Zoster without complications (14) UTI (urinary tract infection) Code(s): N39.0 - URINARY TRACT INFECTION, SITE NOT SPECIFIED Qualifiers: Urinary tract infection type: acute cystitis Hematuria presence: without hematuria Qualified Code(s): N30.00 - Acute cystitis without hematuria Assessment/Plan Decompensated CHF - elevated bnp ( patient was on lasix as outp) Cardiac Cath [facility] 05-10-17 non obstructive CAD mild to moderate pulmonary hypertension PASP up to 45 mmHg, +1 MR A. Fib 2010 Asthma HTN Hyperlipidemia Negative MIBI stress test 15 SVT SEvere MR TR ECHO 2017 Plan d/c digoxin increase cardizem as needed for rate control IV lasix f/u ekg will f/u
--- NOTE | 2017-08-19 09:33 | PN ---
Progress Note (short form) - Note Progress Note: c/o dyspnea on exertion. difficulty ambulating to the bathroom. cough and pain in side has improved. denies Cp, fever, chills, N/V/C/D Current Medications Generic Name Dose Route Start Last Admin Trade Name Freq PRN Reason Stop Dose Admin Atorvastatin Calcium 20 mg 08/16/17 22:00 08/18/17 22:25 Lipitor - PO 20 mg HS GERTRUDE Administration Budesonide/Formoterol Fumarate 2 puff 08/16/17 22:00 08/18/17 22:25 Symbicort 160/4.5mcg - IH 2 puff BID GERTRUDE Administration Dabigatran 150 mg 08/16/17 22:00 08/18/17 22:25 Pradaxa - PO 150 mg BID GERTRUDE Administration Diazepam 5 mg 08/16/17 19:03 Valium - PO Q24H PRN MUSCLE SPASMS Diltiazem HCl 240 mg 08/17/17 10:00 08/18/17 09:55 Cardizem Cd - PO 240 mg DAILY GERTRUDE Administration Furosemide 20 mg 08/19/17 10:00 Lasix Injection - IVPUSH DAILY GERTRUDE Gabapentin 300 mg 08/17/17 14:00 08/19/17 06:04 Neurontin - PO 300 mg TID GERTRUDE Administration Azithromycin 250 mg/ Dextrose 250 mls @ 250 mls/hr 08/17/17 10:00 08/18/17 10 :25 IVPB 250 mls/hr DAILY GERTRUDE Administration Ipratropium [place] 1 amp 08/18/17 16:45 08/19/17 07:15 Atrovent 0.02% Nebulizer - NEB 1 amp RQID GERTRUDE Administration Ipratropium [place] 1 amp 08/18/17 16:30 Atrovent 0.02% Nebulizer - NEB Q4H PRN WHEEZING Methylprednisolone Sodium Succinate 60 mg 08/17/17 22:00 08/18/17 22:24 Solu-Medrol - IVPUSH 60 mg BID GERTRUDE Administration Multivitamins/Minerals/Vitamin C 1 tab 08/17/17 10:00 08/18/17 09:56 Tab-A-Vit - PO 1 tab DAILY GERTRUDE Administration Paroxetine HCl 40 mg 08/17/17 10:00 08/18/17 09:56 Paxil - PO 40 mg DAILY GERTRUDE Administration Potassium Chloride 10 meq 08/17/17 10:00 08/18/17 09:55 K-Dur - PO 10 meq DAILY GERTRUDE Administration Last Vital Signs Temp Pulse Resp BP Pulse Ox 97.9 F 104 H 20 138/74 96 08/19/17 06:01 08/19/17 06:01 08/19/17 06:01 08/19/17 06:01 08/18/17 21:00 General NAD CV S1 S2 irregular, no murmur Lungs CTA B/L no wheezing/rales/rhonchi Abdomen soft NT/ND obese Extremities no pedal edema ASSESSMENT AND PLAN: 87yo F with PMH PMH of AFib (on Pradaxa), CHF, COPD, HTN, and recent diagnosis of shingles presented to the ER with SOB progressively worsening over the past 2weeks 1. Acute COPD exacerbation-dyspnea improves on rest but unable to ambulate. will cont medrol 60mg BID, azithro day 4. does not qualify for home O2 and saturates well on RA but feels improved with supplemental oxygen. cont Nebs. 2. Iron def anemia- low iron levels and sat. will start iron po. educated on side effects. will need repeat iron studies in 3 months. 3. Postherpetic neuralgia-improved with current gabapentin dosing. will cont and titrate down by PMD. 4. Afib on pradaxa- cont home medications. cont pradaxa 5. diastolic CHF- no signs of volume overload. 6, HTn- controlled. cont home medication 7. DVT ppx- hep sq Visit type - Emergency Visit Emergency Visit: Yes ED Registration Date: 08/16/17 Care time: The patient presented to the Emergency Department on the above date and was hospitalized for further evaluation of their emergent condition. - New Patient This patient is new to me today: No - Critical Care Critical Care patient: No - Discharge Referral Referred to [facility] No
[2017-08-19] MEDS ORDERED: PT OWN MED DRAWER 7, Y5N ONE (10:04)
[2017-08-19] MEDS ORDERED: PARoxetine HCL 10 MG TABLET (FP) ONE (10:04)
[2017-08-19] MEDS: PARoxetine HCL 20 MG TABLET (FP) PO SCH (11:00)
[2017-08-19] MEDS: BUDESONIDE/FORMETEROL FUMARATE 160/4.5 mcg INHALER IH SCH ×2 (11:00→22:07)
[2017-08-19] MEDS: FUROSEMIDE 40 MG/4 ML INJECTABLE VIAL IVPUSH SCH (11:00)
[2017-08-19] MEDS: methylPREDNISolone NA SUCC 40 MG/1 ML VIAL IVPUSH SCH ×2 (11:00→22:04)
[2017-08-19] MEDS: POTASSIUM CHLORIDE TABS 10 MEQ TABLET.ER (FP) PO SCH (11:00)
[2017-08-19] MEDS: MULTIVITAMINS (DAILY MVI) TABLET (FP) PO SCH (11:00)
[2017-08-19] MEDS: DABIGATRAN ETEXILATE MESYLATE 150 MG CAPSULE PO SCH ×2 (11:00→22:05)
[2017-08-19] MEDS: AZITHROMYCIN IVPB 250 MG in DEXTROSE 5%-WATER - 250 ML IVPB SCH (11:06)
[2017-08-19] MEDS: FERROUS SO4 325 MG TABLET (FP) PO SCH (17:36)
[2017-08-19] MEDS: ATORVASTATIN CA 20 MG TABLET (FP) PO SCH (22:04)
[2017-08-20] MEDS: GABAPENTIN 300 MG CAPSULE (FP) PO SCH ×3 (05:57→21:15)
[2017-08-20] MEDS: IPRATROPIUM BR 0.02% 0.5 MG/2.5 ML VIAL.NEB. NEB SCH ×4 (08:03→21:36)
[2017-08-20] MEDS ORDERED: PARoxetine HCL 10 MG TABLET (FP) ONE (09:04)
[2017-08-20] MEDS ORDERED: PT OWN MED DRAWER 7, Y5N ONE (09:05)
[2017-08-20] MEDS: FERROUS SO4 325 MG TABLET (FP) PO SCH ×2 (09:10→17:49)
--- NOTE | 2017-08-20 09:15 | PN ---
Progress Note, Physician History of Present Illness: Patient is an 87 year old female presented to the ED with the chief complaints of " SOB". As per the patient, she had SOB since several weeks, progressively getting worse. No h/o Orthopnea or PND. SOB is associated with productive sputum , describes it as greenish yellowish sputum. Denies fever, chills, rigors or sweating. No sick contacts. Patient was seen by her PMD who gave her steroids for 5 days without any significant relief. Hence came in to the ED for further evaluation. Patient was recently diagnosed to have Shingles (07/22/2017) was given Valtrex, Gabapentin and Percocet. However percocet caused dizziness and SOB. She reports she has excruciating pain from Shingles and Gabapentin is not helping with her pain. Bowel/Bladder habit normal. Sleep/Appetite normal prior to her illness. ER course was notable for: (1) Afebrile, hemodynamically stable, on 2L oxygen; H/H 9.6/29.5 (2) CXR: No acute pathology (3) Azithromycin, Solumedrol, Albuterol [facility] Cardiac Cath [facility] 05-10-17 non obstructive CAD mild to moderate pulmonary hypertension PASP up to 45 mmHg, +1 MR Anne. Fib 2010 Asthma HTN Hyperlipidemia Negative MIBI stress test 07-09-14 SVT SEvere MR TR ECHO 2017 - Current Medication List Current Medications: Active Medications Atorvastatin Calcium (Lipitor -) 20 mg PO HS [facility] Last Admin: 08/19/17 22:04 Dose: 20 mg Budesonide/Formoterol Fumarate (Symbicort 160/4.5mcg -) 2 puff IH BID [facility] Last Admin: 08/19/17 22:07 Dose: 2 puff Dabigatran (Pradaxa -) 150 mg PO BID [facility] Last Admin: 08/19/17 22:05 Dose: 150 mg Diazepam (Valium -) 5 mg PO Q24H PRN PRN Reason: MUSCLE SPASMS Diltiazem HCl (Cardizem Cd -) 240 mg PO DAILY [facility] Last Admin: 08/19/17 11:00 Dose: 240 mg Ferrous Sulfate (Feosol -) 325 mg PO BIDWM [facility] Last Admin: 08/19/17 17:36 Dose: 325 mg Furosemide (Lasix Injection -) 20 mg IVPUSH DAILY [facility] Last Admin: 08/19/17 11:00 Dose: 20 mg Gabapentin (Neurontin -) 300 mg PO TID [facility] Last Admin: 08/20/17 05:57 Dose: 300 mg Azithromycin 250 mg/ Dextrose 250 mls @ 250 mls/hr IVPB DAILY [facility] Last Admin: 08/19/17 11:06 Dose: 250 mls/hr Ipratropium [place] (Atrovent 0.02% Nebulizer -) 1 amp NEB RQID [facility] Last Admin: 08/20/17 08:03 Dose: 1 amp Ipratropium [place] (Atrovent 0.02% Nebulizer -) 1 amp NEB Q4H PRN PRN Reason: WHEEZING Methylprednisolone Sodium Succinate (Solu-Medrol -) 60 mg IVPUSH BID [facility] Last Admin: 08/19/17 22:04 Dose: 60 mg Multivitamins/Minerals/Vitamin C (Tab-A-Vit -) 1 tab PO DAILY [facility] Last Admin: 08/19/17 11:00 Dose: 1 tab Paroxetine HCl (Paxil -) 40 mg PO DAILY [facility] Last Admin: 08/19/17 11:00 Dose: 40 mg Potassium Chloride (K-Dur -) 10 meq PO DAILY [facility] Last Admin: 08/19/17 11:00 Dose: 10 meq - Objective Vital Signs: Vital Signs Temperature 98.1 F 08/20/17 05:43 Pulse Rate 102 H 08/20/17 05:43 Respiratory Rate 20 08/20/17 05:43 Blood Pressure 143/74 08/20/17 05:43 O2 Sat by Pulse Oximetry (%) 95 08/19/17 21:00 Eyes: Yes: WNL, Conjunctiva Clear, EOM Intact HENT: Yes: WNL, Atraumatic, Normocephalic Neck: Yes: WNL, Supple, Trachea Midline Cardiovascular: Yes: WNL, Regular Rate and Rhythm Respiratory: Yes: Diminished Gastrointestinal: Yes: WNL, Normal Bowel Sounds Genitourinary: Yes: WNL Musculoskeletal: Yes: WNL Extremities: Yes: WNL Edema: No Integumentary: Yes: WNL Neurological: Yes: WNL, Alert, Oriented ...Motor Strength: WNL Psychiatric: Yes: WNL Labs: CBC, BMP 08/18/17 05:15 08/18/17 05:15 Problem List - Problems (1) Cough Code(s): R05 - COUGH (2) Asthma Code(s): J45.909 - UNSPECIFIED ASTHMA, UNCOMPLICATED (3) Atrial fibrillation Code(s): I48.91 - UNSPECIFIED ATRIAL FIBRILLATION Qualifiers: Atrial fibrillation type: chronic atrial fibrillation Qualified Code(s): I48.2 - Chronic atrial fibrillation (4) Back pain with radiation Code(s): M54.9 - DORSALGIA, UNSPECIFIED (5) CHF (congestive heart failure) Code(s): I50.9 - HEART FAILURE, UNSPECIFIED (6) Chest pain Code(s): R07.9 - CHEST PAIN, UNSPECIFIED (7) Colitis Code(s): K52.9 - NONINFECTIVE GASTROENTERITIS AND COLITIS, UNSPECIFIED (8) Dyspnea Code(s): R06.00 - DYSPNEA, UNSPECIFIED (9) Hyperlipemia Code(s): E78.5 - HYPERLIPIDEMIA, UNSPECIFIED (10) Knee pain, right Code(s): M25.561 - PAIN IN RIGHT KNEE Qualifiers: Chronicity: acute Qualified Code(s): M25.561 - Pain in right knee (11) Mitral regurgitation Code(s): I34.0 - NONRHEUMATIC MITRAL (VALVE) INSUFFICIENCY (12) Rib injury Code(s): [id number] - (13) Shingles Code(s): B02.9 - ZOSTER WITHOUT COMPLICATIONS Qualifiers: Herpes zoster complications: without complications Qualified Code(s): B02.9 - Zoster without complications (14) UTI (urinary tract infection) Code(s): N39.0 - URINARY TRACT INFECTION, SITE NOT SPECIFIED Qualifiers: Urinary tract infection type: acute cystitis Hematuria presence: without hematuria Qualified Code(s): N30.00 - Acute cystitis without hematuria Assessment/Plan Decompensated CHF - elevated bnp ( patient was on lasix as outp) Cardiac Cath [facility] 3-7-18 non obstructive CAD mild to moderate pulmonary hypertension PASP up to 45 mmHg, +1 MR Anne. Fib 2010 Asthma HTN Hyperlipidemia Negative MIBI stress test 5-6-15 SVT SEvere MR TR ECHO 2017 Plan d/c digoxin increase cardizem as needed for rate control IV lasix f/u ekg will f/u
[2017-08-20] MEDS: POTASSIUM CHLORIDE TABS 10 MEQ TABLET.ER (FP) PO SCH (10:01)
[2017-08-20] MEDS: FUROSEMIDE 40 MG/4 ML INJECTABLE VIAL IVPUSH SCH (10:01)
[2017-08-20] MEDS: PARoxetine HCL 20 MG TABLET (FP) PO SCH (10:02)
[2017-08-20] MEDS: methylPREDNISolone NA SUCC 40 MG/1 ML VIAL IVPUSH SCH (10:02)
[2017-08-20] MEDS: DABIGATRAN ETEXILATE MESYLATE 150 MG CAPSULE PO SCH ×2 (10:02→21:15)
[2017-08-20] MEDS: MULTIVITAMINS (DAILY MVI) TABLET (FP) PO SCH (10:03)
[2017-08-20] MEDS: BUDESONIDE/FORMETEROL FUMARATE 160/4.5 mcg INHALER IH SCH ×2 (10:12→21:16)
[2017-08-20] MEDS: AZITHROMYCIN IVPB 250 MG in DEXTROSE 5%-WATER - 250 ML IVPB SCH (10:50)
--- NOTE | 2017-08-20 12:15 | PN ---
Physical Exam: SUBJECTIVE: Patient seen and examined at bedside. Status unchanged. Still having tachycardia. Still SOB with walking. OBJECTIVE: Vital Signs Period Temp Pulse Resp BP Sys/Menendez Pulse Ox Last 24 Hr 97.7 F-98.3 F 97-110 20-22 121-150/67-95 95 Gen: No respiratory distress HEENT: NCAT, PERRLA, EOMI Neck: supple, no jvd, no thyromegally, b/l supraclavicular fluctuant ? air- filled fullness Cardiac: RRR, norm s1s2, no m/r/g Pulm: no wheezing in lung mi Abd: soft, nontender Ext: trace pedal edema, 2+ pulses Neuro: no focal deficits. sensory motor intact throughout Active Medications Generic Name Dose Route Start Last Admin Trade Name Freq PRN Reason Stop Dose Admin Atorvastatin Calcium 20 mg 08/16/17 22:00 08/19/17 22:04 Lipitor - PO 20 mg HS GERTRUDE Administration Budesonide/Formoterol Fumarate 2 puff 08/16/17 22:00 08/20/17 10:12 Symbicort 160/4.5mcg - IH 2 puff BID GERTRUDE Administration Dabigatran 150 mg 08/16/17 22:00 08/20/17 10:02 Pradaxa - PO 150 mg BID GERTRUDE Administration Diazepam 5 mg 08/16/17 19:03 Valium - PO Q24H PRN MUSCLE SPASMS Diltiazem HCl 240 mg 08/17/17 10:00 08/20/17 10:01 Cardizem Cd - PO 240 mg DAILY GERTRUDE Administration Ferrous Sulfate 325 mg 08/19/17 17:30 08/20/17 09:10 Feosol - PO 325 mg BIDWM GERTRUDE Administration Furosemide 20 mg 08/19/17 10:00 08/20/17 10:01 Lasix Injection - IVPUSH 20 mg DAILY GERTRUDE Administration Gabapentin 300 mg 08/17/17 14:00 08/20/17 05:57 Neurontin - PO 300 mg TID GERTRUDE Administration Azithromycin 250 mg/ Dextrose 250 mls @ 250 mls/hr 08/17/17 10:00 08/20/17 10 :50 IVPB 250 mls/hr DAILY GERTRUDE Administration Ipratropium [place] 1 amp 08/18/17 16:45 08/20/17 11:15 Atrovent 0.02% Nebulizer - NEB 1 amp RQID GERTRUDE Administration Ipratropium [place] 1 amp 08/18/17 16:30 Atrovent 0.02% Nebulizer - NEB Q4H PRN WHEEZING Methylprednisolone Sodium Succinate 60 mg 08/17/17 22:00 08/20/17 10:02 Solu-Medrol - IVPUSH 60 mg BID GERTRUDE Administration Multivitamins/Minerals/Vitamin C 1 tab 08/17/17 10:00 08/20/17 10:03 Tab-A-Vit - PO 1 tab DAILY GERTRUDE Administration Paroxetine HCl 40 mg 08/17/17 10:00 08/20/17 10:02 Paxil - PO 40 mg DAILY GERTRUDE Administration Potassium Chloride 10 meq 08/17/17 10:00 08/20/17 10:01 K-Dur - PO 10 meq DAILY GERTRUDE Administration ASSESSMENT/PLAN: This is a pleasant 87 y/o F with PMH COPD and shingles who presents to ED with complaint of SOB. Pt is admitted for COPD exacerbation #COPD exacerbation -Duonebs changed to ipratropium -Advair -Azithromycin -Solumedrol -CXR PA & Lat -Pulm consulted #Shingles -Gabapentin increased -Valium -Pain free #CHF -per cards: diastolic: normal IVEF. Moderately severe MR -Euvolemic #Afib -Digoxin -Dabigatran #HTN -Cardizem #HLD -Lipitor #FEN -Not on fluids -lytes wnl -Na-controlled diet #PPx -on Dabigatran #Dispo -Medsurg for COPD exacerbation Jose Cruz Murphy MD PGY-1 IM Visit type - Emergency Visit Emergency Visit: No - New Patient This patient is new to me today: No - Critical Care Critical Care patient: No - Discharge Referral Referred to [facility] No
--- NOTE | 2017-08-20 12:27 | CON.PULM ---
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 KNOWN BY ME FROM PREVIOUS CONSULTATION. ADMITTED WITH INCREASING SOB/COUGH AND WHEEZE. SHE WAS TOLD SHE HAD TBC A YOUNG CHILD, HENCE THE GRANUL[place]AS ON CXR. DENIES HEMOPTYSIS,NIGHT SWEATS,PROLONGED FEVERS, ANOREXIA OR WEIGHT LOSS. I HAVE BEEN ASKED TO EVALUATE DUE TO NO SIGNIFICANT IMPROVEMENT IN SYMPTOMS DESPITE TREATMENT. - History Source History Provided By: Patient, Medical Record Limitations to Obtaining History: No Limitations - Past Medical History DIRECTOR SKILLS: No: Alzheimer's Cardio/Vascular: Yes: AFIB, CHF, Mitral Insufficiency Pulmonary: Yes: Asthma. No: Cancer Gastrointestinal: No: Ascites Hepatobiliary: No: Cirrhosis Renal/: No: Renal Failure Reproductive: Yes: Postmenopausal ...: No Heme/Onc: Yes: Anemia Infectious Disease: No: AIDS Psych: Yes: Anxiety Musculoskeletal: Yes: Osteoarthritis Rheumatology: No: Fibromyalgia Endocrine: No: Diabetes Mellitus - Past Surgical History Past Surgical History: Yes: Cholecystectomy - Alcohol/Substance Use Hx Alcohol Use: No - Smoking History Smoking history: Never smoked Have you smoked in the past 12 months: No - Social History ADL: Independent Place of : Other History of Recent Travel: No Home Medications - Allergies Allergies/Adverse Reactions: Allergies Allergy/AdvReac Type Severity Reaction Status Date / Time levofloxacin Allergy Rash Verified 08/01/17 08:17 oxycodone [From Percocet] Allergy Verified 08/16/17 14:57 - Home Medications Home Medications: Ambulatory Orders Atorvastatin Ca [Lipitor] 20 mg PO DAILY 07/07/14 Diltiazem HCl [Cardizem LA] 240 mg PO DAILY 07/07/14 Paroxetine HCl [Paxil -] 40 mg PO DAILY 07/07/14 Potassium Chloride [K-Dur] 10 meq PO DAILY 07/07/14 Albuterol Sulfate Inhaler - [Ventolin HFA Inhaler -] 1 - 2 inh PO Q4H PRN Fluticasone/Salmeterol [Advair 250-50 Diskus] 1 each IH DAILY 07/18/17 Multivitamin [Daily Multiple Vitamin] 1 each PO DAILY 07/18/17 Dabigatran Etexilate Mesylate [Pradaxa -] 150 mg PO BID 08/16/17 Diazepam [Valium] 5 mg PO DAILY PRN 08/16/17 Digoxin [Lanoxin -] 0.125 mg PO DAILY 08/16/17 Gabapentin 300 mg PO BID 08/16/17 Family Disease History - Family Disease History Family History: Unremarkable Review of Systems - Review of Systems Constitutional: denies: Fever Eyes: denies: Blurred Vision HENT: denies: Difficult Swallowing Neck: denies: Decreased ROM Cardiovascular: denies: Chest Pain Respiratory: reports: Cough, SOB on Exertion, Wheezing. denies: Hemoptysis Gastrointestinal: denies: Abdominal Pain Genitourinary: denies: Burning Breasts: reports: No Symptoms Reported Musculoskeletal: reports: No Symptoms Integumentary: reports: No Symptoms Neurological: reports: No Symptoms Physical Exam Vital Sings: Vital Signs Temperature 98.1 F 08/20/17 05:43 Pulse Rate 102 H 08/20/17 05:43 Respiratory Rate 20 08/20/17 05:43 Blood Pressure 143/74 08/20/17 05:43 O2 Sat by Pulse Oximetry (%) 95 08/19/17 21:00 Constitutional: Yes: Calm Eyes: Yes: EOM Intact HENT: Yes: Normocephalic Neck: Yes: Trachea Midline Cardiovascular: Yes: Pulse Irregular, S1, S2 Respiratory: Yes: Diminished Gastrointestinal: Yes: Normal Bowel Sounds Edema: No Neurological: Yes: Alert Psychiatric: Yes: Alert Labs: CBC, BMP 08/18/17 05:15 08/18/17 05:15 REST REVIEWED Imaging - Results Chest X-ray: Report Reviewed, Image Reviewed EKG: Report Reviewed, Image Reviewed Problem List - Problems (1) Cough Code(s): R05 - COUGH (2) Asthma Code(s): J45.909 - UNSPECIFIED ASTHMA, UNCOMPLICATED (3) Atrial fibrillation Code(s): I48.91 - UNSPECIFIED ATRIAL FIBRILLATION Qualifiers: Atrial fibrillation type: chronic atrial fibrillation (4) CHF (congestive heart failure) Code(s): I50.9 - HEART FAILURE, UNSPECIFIED (5) Dyspnea Code(s): R06.00 - DYSPNEA, UNSPECIFIED Assessment/Plan AGREE THAT SYMPTOMS ARE MORE CARDIAC IN NATURE/ AN ACUTE BRONCHITIS MAY HAVE BEEN THE INCITING ETIOLOGY. 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
--- NOTE | 2017-08-20 13:06 | PN ---
Teaching Attending Note Name of Resident: Jose Crzu Murphy ATTENDING PHYSICIAN STATEMENT I saw and evaluated the patient. I reviewed the resident's note and discussed the case with the resident. I agree with the resident's findings and plan as documented. SUBJECTIVE:c/o dyspnea on exertion not at rest. assoc with non productive cough. denies CP, fever, chills, N/V/C/D OBJECTIVE: Last Vital Signs Temp Pulse Resp BP Pulse Ox 98.1 F 102 H 20 143/74 95 08/20/17 05:43 08/20/17 05:43 08/20/17 05:43 08/20/17 05:43 08/19/17 21:00 General NAD CV S1 S2 irregular, no murmur Lungs CTA B/L no wheezing/rales/rhonchi Abdomen soft NT/ND obese Extremities 1+ pedal edema B/L ASSESSMENT AND PLAN: 87yo F with PMH PMH of AFib (on Pradaxa), CHF, COPD, HTN, and recent diagnosis of shingles presented to the ER with SOB progressively worsening over the past 2weeks 1. Acute COPD exacerbation-lungs are clear on exam. evaluate CXR to evaluate for alternative pathology. will consult pulmonary to evaluate. robitussin prn cough. will decrease medrol to daily dosing due to swelling noted on exam. concern may be developing some volume overload. will give lasix 20mg IVP and see for improvement. completes 5th day of azitrho today. supplemental oxygan as needed. 2. Iron def anemia- low iron levels and sat. on iron po. educated on side effects. will need repeat iron studies in 3 months. 3. Postherpetic neuralgia-improved with current gabapentin dosing. will cont and titrate down by PMD. 4. Afib on pradaxa- cont home medications. cont pradaxa 5. diastolic CHF- no signs of volume overload. 6, HTn- controlled. cont home medication 7. DVT ppx- hep sq
[2017-08-20] MEDS ORDERED: guaiFENesin 200 MG/10 ML 10 ML UNIT-DOSE CUPS PO PRN (14:08)
[2017-08-20] MEDS: ATORVASTATIN CA 20 MG TABLET (FP) PO SCH (21:15)
[2017-08-21] MEDS: GABAPENTIN 300 MG CAPSULE (FP) PO SCH ×2 (06:04→13:38)
[2017-08-21 08:01] LABS: BASO % 0.2 % (0-2.0); HEMATOCRIT 31.4 % (32.4-45.2); HEMOGLOBIN 10.3 GM/dL (10.7-15.3); LYMPH % 7.4 % (8-40); MCH 29.4 pg (25.7-33.7); MEAN CELL VOLUME 89.3 fl (80-96); MEAN PLT VOLUME 7.7 fl (7.5-11.1); MONO % 4.2 % (3.8-10.2); NEUT % 88.2 % (42.8-82.8); PLATELET COUNT 299 K/MM3 (134-434); RBC 3.52 M/mm3 (3.60-5.2); RDW 17.8 % (11.6-15.6); WHITE BLOOD COUNT 15.7 K/mm3 (4.0-10.0)
[2017-08-21 08:21] LABS: ANION GAP 8 (8-16); BLOOD UREA NITROGEN 34 mg/dL (7-18); CALCIUM 8.7 mg/dL (8.5-10.1); CHLORIDE 104 mmol/L (98-107); CO2 28 mmol/L (21-32); GLUCOSE,RANDOM 102 mg/dL (74-106); MAGNESIUM 2.5 mg/dL (1.8-2.4); POTASSIUM 4.4 mmol/L (3.5-5.1); SODIUM 140 mmol/L (136-145)
[2017-08-21 08:27] LABS: CREATININE 1.2 mg/dL (0.55-1.02)
[2017-08-21] MEDS: IPRATROPIUM BR 0.02% 0.5 MG/2.5 ML VIAL.NEB. NEB SCH ×2 (08:28→11:35)
[2017-08-21] MEDS ORDERED: PT OWN MED DRAWER 7, Y5N ONE (09:56)
[2017-08-21] MEDS ORDERED: PARoxetine HCL 10 MG TABLET (FP) ONE (09:56)
[2017-08-21] MEDS: FERROUS SO4 325 MG TABLET (FP) PO SCH ×2 (09:58→16:39)
[2017-08-21] MEDS: MULTIVITAMINS (DAILY MVI) TABLET (FP) PO SCH (09:58)
[2017-08-21] MEDS: PARoxetine HCL 20 MG TABLET (FP) PO SCH (09:59)
[2017-08-21] MEDS: DABIGATRAN ETEXILATE MESYLATE 150 MG CAPSULE PO SCH (09:59)
[2017-08-21] MEDS: POTASSIUM CHLORIDE TABS 10 MEQ TABLET.ER (FP) PO SCH (09:59)
[2017-08-21] MEDS ORDERED: methylPREDNISolone NA SUCC 125 MG/2 ML VIAL IVPUSH SCH (10:00)
[2017-08-21] MEDS: FUROSEMIDE 40 MG/4 ML INJECTABLE VIAL IVPUSH SCH (10:00)
[2017-08-21 10:28] VITALS: BP 133/82; TEMP 98.6
--- NOTE | 2017-08-21 10:31 | PN ---
Progress Note, Physician History of Present Illness: Patient is an 87 year old female presented to the ED with the chief complaints of " SOB". As per the patient, she had SOB since several weeks, progressively getting worse. No h/o Orthopnea or PND. SOB is associated with productive sputum , describes it as greenish yellowish sputum. Denies fever, chills, rigors or sweating. No sick contacts. Patient was seen by her PMD who gave her steroids for 5 days without any significant relief. Hence came in to the ED for further evaluation. Patient was recently diagnosed to have Shingles (07/22/2017) was given Valtrex, Gabapentin and Percocet. However percocet caused dizziness and SOB. She reports she has excruciating pain from Shingles and Gabapentin is not helping with her pain. Bowel/Bladder habit normal. Sleep/Appetite normal prior to her illness. ER course was notable for: (1) Afebrile, hemodynamically stable, on 2L oxygen; H/H 9.6/29.5 (2) CXR: No acute pathology (3) Azithromycin, Solumedrol, Albuterol [facility] Cardiac Cath [facility] 05-10-17 non obstructive CAD mild to moderate pulmonary hypertension PASP up to 45 mmHg, +1 MR Anne. Fib 2010 Asthma HTN Hyperlipidemia Negative MIBI stress test 07-09-14 SVT SEvere MR TR ECHO 2017 - Current Medication List Current Medications: Active Medications Atorvastatin Calcium (Lipitor -) 20 mg PO HS [facility] Last Admin: 08/20/17 21:15 Dose: 20 mg Budesonide/Formoterol Fumarate (Symbicort 160/4.5mcg -) 2 puff IH BID [facility] Last Admin: 08/20/17 21:16 Dose: 2 puff Dabigatran (Pradaxa -) 150 mg PO BID [facility] Last Admin: 08/21/17 09:59 Dose: 150 mg Diazepam (Valium -) 5 mg PO Q24H PRN PRN Reason: MUSCLE SPASMS Diltiazem HCl (Cardizem Cd -) 240 mg PO DAILY [facility] Last Admin: 08/21/17 09:58 Dose: 240 mg Ferrous Sulfate (Feosol -) 325 mg PO BIDWM [facility] Last Admin: 08/21/17 09:58 Dose: 325 mg Furosemide (Lasix Injection -) 20 mg IVPUSH DAILY [facility] Last Admin: 08/21/17 10:00 Dose: 20 mg Gabapentin (Neurontin -) 300 mg PO TID [facility] Last Admin: 08/21/17 06:04 Dose: 300 mg Guaifenesin (Robitussin -) 10 ml PO Q4H PRN PRN Reason: COUGH Last Admin: 08/20/17 16:52 Dose: 10 ml Ipratropium [place] (Atrovent 0.02% Nebulizer -) 1 amp NEB RQID [facility] Last Admin: 08/21/17 08:28 Dose: 1 amp Ipratropium [place] (Atrovent 0.02% Nebulizer -) 1 amp NEB Q4H PRN PRN Reason: WHEEZING Methylprednisolone Sodium Succinate (Solu-Medrol -) 60 mg IVPUSH DAILY [facility] Last Admin: 08/21/17 10:00 Dose: 60 mg Multivitamins/Minerals/Vitamin C (Tab-A-Vit -) 1 tab PO DAILY [facility] Last Admin: 08/21/17 09:58 Dose: 1 tab Paroxetine HCl (Paxil -) 40 mg PO DAILY [facility] Last Admin: 08/21/17 09:59 Dose: 40 mg Potassium Chloride (K-Dur -) 10 meq PO DAILY [facility] Last Admin: 08/21/17 09:59 Dose: 10 meq - Objective Vital Signs: Vital Signs Temperature 98.6 F 08/21/17 10:00 Pulse Rate 99 H 08/21/17 10:00 Respiratory Rate 20 08/21/17 10:00 Blood Pressure 133/82 08/21/17 10:00 O2 Sat by Pulse Oximetry (%) 88 L 08/21/17 09:00 Eyes: Yes: WNL, Conjunctiva Clear, EOM Intact HENT: Yes: WNL, Atraumatic, Normocephalic Neck: Yes: WNL, Supple, Trachea Midline Cardiovascular: Yes: WNL, Regular Rate and Rhythm Respiratory: Yes: WNL, Regular, CTA Bilaterally Gastrointestinal: Yes: WNL, Normal Bowel Sounds Genitourinary: Yes: WNL Musculoskeletal: Yes: WNL Extremities: Yes: WNL Edema: No Integumentary: Yes: WNL Neurological: Yes: WNL, Alert, Oriented ...Motor Strength: WNL Psychiatric: Yes: WNL Labs: CBC, BMP 08/21/17 06:20 08/21/17 06:20 Problem List - Problems (1) Cough Code(s): R05 - COUGH (2) Asthma Code(s): J45.909 - UNSPECIFIED ASTHMA, UNCOMPLICATED (3) Atrial fibrillation Code(s): I48.91 - UNSPECIFIED ATRIAL FIBRILLATION Qualifiers: Atrial fibrillation type: chronic atrial fibrillation (4) Back pain with radiation Code(s): M54.9 - DORSALGIA, UNSPECIFIED (5) CHF (congestive heart failure) Code(s): I50.9 - HEART FAILURE, UNSPECIFIED (6) Chest pain Code(s): R07.9 - CHEST PAIN, UNSPECIFIED (7) Colitis Code(s): K52.9 - NONINFECTIVE GASTROENTERITIS AND COLITIS, UNSPECIFIED (8) Dyspnea Code(s): R06.00 - DYSPNEA, UNSPECIFIED (9) Hyperlipemia Code(s): E78.5 - HYPERLIPIDEMIA, UNSPECIFIED (10) Knee pain, right Code(s): M25.561 - PAIN IN RIGHT KNEE Qualifiers: Chronicity: acute Qualified Code(s): M25.561 - Pain in right knee (11) Mitral regurgitation Code(s): I34.0 - NONRHEUMATIC MITRAL (VALVE) INSUFFICIENCY (12) Rib injury Code(s): CHW9885 - (13) Shingles Code(s): B02.9 - ZOSTER WITHOUT COMPLICATIONS Qualifiers: Herpes zoster complications: without complications Qualified Code(s): B02.9 - Zoster without complications (14) UTI (urinary tract infection) Code(s): N39.0 - URINARY TRACT INFECTION, SITE NOT SPECIFIED Qualifiers: Urinary tract infection type: acute cystitis Hematuria presence: without hematuria Qualified Code(s): N30.00 - Acute cystitis without hematuria Assessment/Plan Decompensated CHF - elevated bnp ( patient was on lasix as outp) Cardiac Cath [facility] 18 non obstructive CAD mild to moderate pulmonary hypertension PASP up to 45 mmHg, +1 MR A. Fib 2010 Asthma HTN Hyperlipidemia Negative MIBI stress test 07-09-15 SVT SEvere MR TR ECHO 2017 Plan d/c digoxin increase cardizem as needed for rate control IV lasix will change to PO since chf improving f/u ekg will f/u
[2017-08-21] MEDS: BUDESONIDE/FORMETEROL FUMARATE 160/4.5 mcg INHALER IH SCH (10:39)
[2017-08-21 11:38] LABS: ANISOCYTOSIS 1+; MACROCYTOSIS 0; PLATELET ESTIMATE NORMAL
[2017-08-21 13:10] VITALS: PULSE 113
--- NOTE | 2017-08-21 14:09 | PN ---
Progress Note, Physician History of Present Illness: pulmonary alert,feeling better,less dyspneic,-cp. - Current Medication List Current Medications: Active Medications Atorvastatin Calcium (Lipitor -) 20 mg PO HS [facility] Last Admin: 08/20/17 21:15 Dose: 20 mg Budesonide/Formoterol Fumarate (Symbicort 160/4.5mcg -) 2 puff IH BID [facility] Last Admin: 08/21/17 10:39 Dose: 2 puff Dabigatran (Pradaxa -) 150 mg PO BID [facility] Last Admin: 08/21/17 09:59 Dose: 150 mg Diazepam (Valium -) 5 mg PO Q24H PRN PRN Reason: MUSCLE SPASMS Diltiazem HCl (Cardizem Cd -) 240 mg PO DAILY [facility] Last Admin: 08/21/17 09:58 Dose: 240 mg Ferrous Sulfate (Feosol -) 325 mg PO BIDWM [facility] Last Admin: 08/21/17 09:58 Dose: 325 mg Furosemide (Lasix -) 20 mg PO DAILY [facility] Gabapentin (Neurontin -) 300 mg PO TID [facility] Last Admin: 08/21/17 13:38 Dose: 300 mg Guaifenesin (Robitussin -) 10 ml PO Q4H PRN PRN Reason: COUGH Last Admin: 08/20/17 16:52 Dose: 10 ml Ipratropium [place] (Atrovent 0.02% Nebulizer -) 1 amp NEB RQID [facility] Last Admin: 08/21/17 11:35 Dose: 1 amp Ipratropium [place] (Atrovent 0.02% Nebulizer -) 1 amp NEB Q4H PRN PRN Reason: WHEEZING Methylprednisolone Sodium Succinate (Solu-Medrol -) 60 mg IVPUSH DAILY [facility] Last Admin: 08/21/17 10:00 Dose: 60 mg Multivitamins/Minerals/Vitamin C (Tab-A-Vit -) 1 tab PO DAILY [facility] Last Admin: 08/21/17 09:58 Dose: 1 tab Paroxetine HCl (Paxil -) 40 mg PO DAILY [facility] Last Admin: 08/21/17 09:59 Dose: 40 mg Potassium Chloride (K-Dur -) 10 meq PO DAILY [facility] Last Admin: 08/21/17 09:59 Dose: 10 meq - Objective Vital Signs: Vital Signs Temperature 98.6 F 08/21/17 10:00 Pulse Rate 113 H 08/21/17 13:08 Respiratory Rate 20 08/21/17 10:00 Blood Pressure 133/82 08/21/17 10:00 O2 Sat by Pulse Oximetry (%) 96 08/21/17 13:08 Constitutional: Yes: Well Nourished, Calm Eyes: Yes: WNL HENT: Yes: WNL Neck: Yes: Supple Cardiovascular: Yes: Pulse Irregular, S1, S2 Respiratory: Yes: CTA Bilaterally Gastrointestinal: Yes: Normal Bowel Sounds, Soft Extremities: Yes: WNL Edema: No Labs: CBC, BMP 08/21/17 06:20 08/21/17 06:20 Assessment/Plan Problem List - Problems (1) Cough Code(s): R05 - COUGH (2) Asthma Code(s): J45.909 - UNSPECIFIED ASTHMA, UNCOMPLICATED (3) Atrial fibrillation Code(s): I48.91 - UNSPECIFIED ATRIAL FIBRILLATION Qualifiers: Atrial fibrillation type: chronic atrial fibrillation (4) CHF (congestive heart failure) Code(s): I50.9 - HEART FAILURE, UNSPECIFIED (5) Dyspnea Code(s): R06.00 - DYSPNEA, UNSPECIFIED Assessment/Plan AGREE THAT SYMPTOMS ARE MORE CARDIAC IN NATURE/ ACUTE BRONCHITIS MAY HAVE BEEN THE INCITING ETIOLOGY DYSPNEA COPD AFIB PULMONARY HTN ? [facility] PLAN O2 INHALED BRONCHODILATORS MEDROL TAPER AC SLEEP SCREEN DR FISHMAN
--- NOTE | 2017-08-21 14:32 | PN ---
Teaching Attending Note Name of Resident: Jose Cruz Murphy ATTENDING PHYSICIAN STATEMENT I saw and evaluated the patient. I reviewed the resident's note and discussed the case with the resident. I agree with the resident's findings and plan as documented. SUBJECTIVE:states breating has improved. conitnues to have non productive cough that is relieved with robitussin. denies fever, chills, CP, orhtopnea, N/V/C/D OBJECTIVE: Last Vital Signs Temp Pulse Resp BP Pulse Ox 98.6 F 113 H 20 133/82 96 08/21/17 10:00 08/21/17 13:08 08/21/17 10:00 08/21/17 10:00 08/21/17 13:08 General NAD CV S1 S2 irregular, no murmur Lungs CTA B/L no wheezing/rales/rhonchi Abdomen soft NT/ND obese Extremities no pedal edema ASSESSMENT AND PLAN: 87yo F with PMH PMH of AFib (on Pradaxa), CHF, COPD, HTN, and recent diagnosis of shingles presented to the ER with SOB progressively worsening over the past 2weeks 1. Acute COPD exacerbation-lungs are clear on exam. CXR yesterday was clear. evaluated by pulm and thought to be more volume overload as evident with pedal edema. will transtion to oral steroids. with taper by 10mg every 2 days. completed abx here. check pre and post to evaluate if qualifies for home O2 2. acute diastolic CHF- liekly induced by edema from steroid use. received lasix IV yesterday with improvement. digoxin was d/c. can d/c on lasix 20mg po and follow up [facility] as outpatient 3. Iron def anemia- low iron levels and sat. on iron po. educated on side effects. will need repeat iron studies in 3 months. 4. Postherpetic neuralgia-improved with current gabapentin dosing. will cont and titrate down by PMD. 5. Afib on pradaxa- cont home medications. cont pradaxa 6. diastolic CHF- no signs of volume overload. 7. HTn- controlled. cont home medication 8. DVT ppx- hep sq 9. d/c home pending pre and post eval
--- NOTE | 2017-08-21 19:50 | PN ---
Physical Exam: SUBJECTIVE: Patient seen and examined at bedside. Feels much better. No longer SOB when walking to bathroom or down the [place]nandez. OBJECTIVE: Vital Signs Period Temp Pulse Resp BP Sys/Menendez Pulse Ox Last 24 Hr 98 F-98.6 F 99-113 20-20 131-150/70-82 88-97 Gen: No respiratory distress HEENT: NCAT, PERRLA, EOMI Neck: supple, no jvd, no thyromegally, b/l supraclavicular fluctuant ? air- filled fullness Cardiac: RRR, norm s1s2, no m/r/g Pulm: no wheezing in lung mi Abd: soft, nontender Ext: trace pedal edema, 2+ pulses Neuro: no focal deficits. sensory motor intact throughout Laboratory Results - last 24 hr 18 08/21/17 06:20 06:20 WBC 15.7 H RBC 3.52 L Hgb 10.3 L D Hct 31.4 L MCV 89.3 MCH 29.4 MCHC 33.0 RDW 17.8 H Plt Count 299 MPV 7.7 Absolute Neuts (auto) 13.9 Total Counted 99 Neutrophils % 88.2 H Neutrophils % (Manual) 87.9 H Band Neutrophils % 1.0 Lymphocytes % 7.4 L D Lymphocytes % (Manual) 8.1 D Monocytes % 4.2 D Monocytes % (Manual) 2 L D Eosinophils % 0.0 Eosinophils % (Manual) 0.0 Basophils % 0.2 Basophils % (Manual) 0.0 Myelocytes % (Man) 1 D Promyelocytes % (Man) 0 Blast Cells % (Manual) 0 Nucleated RBC % 0 Metamyelocytes 0 Hypochromia 0 Platelet Estimate Normal Polychromasia 1+ Poikilocytosis 1+ Anisocytosis 1+ Microcytosis 1+ Macrocytosis 0 [place] Cells 1+ Sodium 140 Potassium 4.4 Chloride 104 Carbon Dioxide 28 Anion Gap 8 BUN 34 H Creatinine 1.2 H Creat Clearance w eGFR 42.70 Random Glucose 102 Calcium 8.7 Magnesium 2.5 H ASSESSMENT/PLAN: This is a pleasant 87 y/o F with PMH COPD and shingles who presents to ED with complaint of SOB. Pt is admitted for COPD exacerbation Pt was started on Duonebs but was changed to ipratropium in case albuterol was contributing to tachycardia. Pt was also treated with Advair, Azithromycin, and Solumedrol. CXR PA & Lat were unremarkable apart from cardiomegally. Pulm consulted Pt was initially thought to have primarily COPD, but was shown to have CHF exacerbation. BNP was elevated, and pt had sob. She was treated with lasix and improved. Pt came in with resolving Shingles. Her pain was not controlled, so Gabapentin was increased. She was given her home dose of Valium. She has been pain free Pt had known Afib. During her stay, Digoxin was discontinued, but she was kept on Dabigatran. Pt's HTN was treated with Cardizem Pt's HLD was treated with Lipitor Pt is stable for discharge Visit type - Emergency Visit Emergency Visit: No - New Patient This patient is new to me today: No - Critical Care Critical Care patient: No - Discharge Referral Referred to [facility] No
[2017-08-22] MEDS ORDERED: FUROSEMIDE 20 MG TABLET (FP) PO SCH (10:00)
== END 2017-08-21 18:03 | disposition home or self-care (01) | DRG 73 ==
LOC: JER 14:38 → JERBED 17:51 → OBSVTOIN 18:53 → J7W 19:00
PROVIDERS: ADMIT Internal Medicine; ATTEND Internal Medicine
DX: B02.29 Other postherpetic nervous system involvement (principal); I50.33 Acute on chronic diastolic (congestive) heart failure; J44.1 Chronic obstructive pulmonary disease with (acute) exacerbation; Z79.01 Long term (current) use of anticoagulants; I11.0 Hypertensive heart disease with heart failure; I27.20 Pulmonary hypertension, unspecified; E78.5 Hyperlipidemia, unspecified; I25.10 Atherosclerotic heart disease of native coronary artery without angina pectoris; I34.0 Nonrheumatic mitral (valve) insufficiency; I48.2 Chronic atrial fibrillation; G47.33 Obstructive sleep apnea (adult) (pediatric); D50.9 Iron deficiency anemia, unspecified
CPT/HCPCS: 36415; 71046-TC-FY; 80048; 80053; 82550; 82728; 83540; 83550; 83735; 83880; 84100; 84466; 84484; 85025; 90670; 93005; 93010; 94640; 94761; 97116-GP; 97161-GP; 99281-25; G0378; J7620

== ENCOUNTER 2017-11-20 12:06 | Observation (INO) | payer OTHER ==
[2017-11-20 13:28] LABS: EOS % 5.8 % (0-4.5); HEMATOCRIT 40.6 % (32.4-45.2); HEMOGLOBIN 13.4 GM/dL (10.7-15.3); LYMPH % 21.9 % (8-40); MCH 31.6 pg (25.7-33.7); MEAN CELL VOLUME 95.8 fl (80-96); MEAN PLT VOLUME 8.3 fl (7.5-11.1); MONO % 7.8 % (3.8-10.2); NEUT % 63.5 % (42.8-82.8); PLATELET COUNT 270 K/MM3 (134-434); RBC 4.24 M/mm3 (3.60-5.2); RDW 14.7 % (11.6-15.6); WHITE BLOOD COUNT 7.8 K/mm3 (4.0-10.0)
--- NOTE | 2017-11-20 13:34 | PDOC ---
History of Present Illness - General Chief Complaint: CVA/TIA Stated Complaint: POSSIBLE STROKE Time Seen by Provider: 11/20/17 12:35 History Source: Patient, Family Exam Limitations: No Limitations - History of Present Illness Initial Comments: 11/20/17 13:28 The patient is an 87F with a PMH of AFib (on Pradaxa), CHF, COPD, HTN, and shingles who presents to the ER after noting some drooping of her mouth. The patient states that 2-3 days ago, she was brushing her teeth and noted that some water was dribbling out of the R side of her mouth. She states that this has stayed the same for the past 3 days. She denies any numbness, tingling, or weakness in any other part of her body. She denies any changes in her vision, CP , SOB, palpitations, and lightheadedness. Past History - Past Medical History Allergies/Adverse Reactions: Allergies Allergy/AdvReac Type Severity Reaction Status Date / Time levofloxacin Allergy Rash Verified 11/20/17 12:16 oxycodone [From Percocet] Allergy Verified 11/20/17 12:16 Home Medications: Ambulatory Orders Atorvastatin Ca [Lipitor] 20 mg PO DAILY 07/07/14 Diltiazem HCl [Cardizem [place]] 240 mg PO DAILY 07/07/14 Paroxetine HCl [Paxil -] 40 mg PO DAILY 07/07/14 Albuterol Sulfate Inhaler - [Ventolin HFA Inhaler -] 1 - 2 inh PO Q4H PRN Fluticasone/Salmeterol [Advair 250-50 Diskus] 1 each IH DAILY 07/18/17 Multivitamin [Daily Multiple Vitamin] 1 each PO DAILY 07/18/17 Diazepam [Valium] 5 mg PO DAILY PRN 08/16/17 Ferrous Sulfate [Feosol] 325 mg PO BID #60 tablet 08/21/17 Gabapentin [Neurontin -] 300 mg PO TID #45 capsule 08/21/17 Guaifenesin [Robitussin -] 10 ml PO Q4H PRN #1 bottle 08/21/17 Apixaban [Eliquis -] 5 mg PO BID #60 tablet 09/05/17 Furosemide [Lasix -] 20 mg PO DAILY 09/05/17 Potassium Chloride [K-Dur -] 10 meq PO DAILY 09/05/17 Asthma: Yes Cardiac Disorders: Yes (afib) COPD: No CHF: Yes DVT: No HTN: Yes Hypercholesterolemia: Yes - Surgical History Cholecystectomy: Yes - Immunization History Immunization Up to Date: Yes - Suicide/Smoking/Psychosocial Hx Smoking History: Never smoked Have you smoked in the past 12 months: No Hx Alcohol Use: No Drug/Substance Use Hx: No Substance Use Type: None Hx Substance Use Treatment: No Review of Systems - Review of Systems Able to Perform ROS?: Yes Comments:: 11/20/17 13:34 GENERAL/CONSTITUTIONAL: No fever or chills. No weakness. HEAD, EYES, EARS, NOSE AND THROAT: No change in vision. No ear pain or discharge. No sore throat. CARDIOVASCULAR: No chest pain, palpitations, or lightheadedness. RESPIRATORY: No cough, wheezing, shortness of breath, or hemoptysis. GASTROINTESTINAL: No nausea, vomiting, diarrhea, constipation, or abdominal pain. GENITOURINARY: No dysuria, frequency, hematuria, or change in urination. MUSCULOSKELETAL: No joint or muscle swelling or pain. No neck or back pain. SKIN: No rash or lesions. NEUROLOGIC: Positive for facial droop. No headache, numbness, tingling, focal weakness, loss of consciousness, or change in strength/sensation. ENDOCRINE: No increased thirst. No abnormal weight change. HEMATOLOGIC/LYMPHATIC: No anemia, easy bleeding, or history of blood clots. ALLERGIC/IMMUNOLOGIC: No hives or skin allergy. Is the patient limited Portuguese proficient: No *Physical Exam - Vital Signs Last Vital Signs Temp Pulse Resp BP Pulse Ox 97.8 F 77 16 127/77 99 11/20/17 12:16 11/20/17 12:16 11/20/17 12:16 11/20/17 12:16 11/20/17 12:16 - Physical Exam Comments: 11/20/17 13:34 GENERAL: Well developed, well nourished. Awake and alert. No acute distress. HEENT: Normocephalic, atraumatic. Hearing grossly normal. Moist mucous membranes. PERRLA, EOMI. No conjunctival pallor. Sclera are non-icteric. NECK: Supple. Full ROM. CARDIOVASCULAR: Regular rate and rhythm. No murmurs, rubs, or gallops. PULMONARY: No evidence of respiratory distress. Lungs clear to auscultation bilaterally. No wheezing, rales or rhonchi. ABDOMINAL: Soft. Non-tender. Non-distended. No rebound or guarding. GENITOURINARY: No CVA tenderness bilaterally. MUSCULOSKELETAL: Normal range of motion at all joints. No bony deformities or tenderness. EXTREMITIES: No cyanosis. No clubbing. No edema. No calf tenderness or swelling. SKIN: Warm and dry. Normal capillary refill. No rashes. No jaundice. NEUROLOGICAL: Alert, awake, appropriate. Cranial nerves 2-12 intact. Mild decreased sensation over L face. Facial droop appreciated on the R side of face without forehead involvement. No deficits to light touch and temperature in face , upper extremities and lower extremities. 5/5 strength in deltoids, biceps, triceps, quadriceps, hamstrings, and gastrocnemius. Finger to nose normal bilaterally. Normal speech. Gait is normal without ataxia. PSYCHIATRIC: Cooperative. Good eye contact. Appropriate mood and affect. NIH Stroke Scale - Last Known Well Date/Time & Onset Date Last Known Well: 11/17/17 Time Last Known Well: 00:00 - Initial Evaluation Level of consciousness: Alert Ask patient the month and their age: Answers both correctly Ask patient to open & close eyes; make fist and let go: Obeys both correctly Best gaze (horizontal eye movement): Partial gaze palsy Visual field testing: No visual field loss Facial paresis (Show teeth/raise eyebrows/close eyes tight): Minor paralysis ( flattened nasolabial fold, asymmetry on smiling) Motor Function: Left Arm: Normal Motor Function: Right Arm: Normal (extends arm 90 (or 45) degrees for 10 seconds without drift Motor Function: Left Leg: Normal (extends leg 30 degrees for 5 seconds without drift) Motor Function: Right Leg: Normal (extends leg 30 degrees for 5 seconds without drift) Limb Ataxia: No ataxia Sensory(Use pinprick test arms,legs,trunk,face/side to side): Mild to moderate decrease in sensation Best language (Describe picture, name items, read sentences): No Aphasia Dysarthria (read several words): Normal articulation Extinction and Inattention: No abnormality - Total Score NIH Stroke Scale Score: 3 tPA Exclusion checklist 3-4.5h - Time Elapsed Date last known well: 11/17/17 Time last known well: 00:00 Elaspsed time: 3 Day(s) and 14 Hour(s) and 18 Minutes - Thrombolytic Therapy Candidate Is patient eligible for thrombolytic therapy: No - Exclusion Criteria 3-4.5 hr SBP greater than 185 or DBP greater than 110mmHg despite tx: No Recent IC/spinal surgery,head trauma or stroke<3mos.: No Hx IC hemorrhage, IC neoplasm, AV malformation or aneurysm: No Active internal bleeding: No Blding diathesis(low plt ct, inc PTT,INR>1.7 or use of NOAC): No Symptoms suggest subarachnoid hemorrhage: No CT demonstrates multilobar infarct(>1/3 cerebral hemiphere): No Arterial puncture at noncompressible site in previous 7 days: No Blood glucose concentration less than 50mg/dL (2.7mmol/L): No - Ineligibility reason(s) Reasons No tPA given: Outside of window - delayed arrival Critical Care Time/[facility] Note - Medical Decision Making Note: 11/20/17 13:37 The patient is an 87F who presents approx 3 days after noticing facial droop, concerning for CVA. She was also noted to have the inability to look downwards and to her R with mild sensation differences in her face. Will check head CT and d/w neurology. 11/20/17 14:17 CT shows no acute pathology. I have endorsed the patient to Dr. Swenson. Will consult Dr. Herrera for neurology. Discharge Disposition - Diagnosis Cerebrovascular accident (CVA) Qualifiers: CVA mechanism: other Qualified Code(s): I63.8 - Other cerebral infarction - Discharge Dispostion Condition at time of disposition: Guarded Last Admission D/C Date: 09/05/17 Decision to Admit order: Yes - Referrals Referrals: John Swenson MD [Primary Care Provider] - - Patient Instructions - Post Discharge Activity
[2017-11-20 13:43] LABS: INR 1.44 (0.83-1.09); PROTHROMBIN TIME (PATIENT) 16.3 SEC (9.7-13.0)
[2017-11-20 14:16] LABS: ALBUMIN 3.7 g/dl (3.4-5.0); ANION GAP 6 MMOL/L (8-16); BLOOD UREA NITROGEN 22 mg/dL (7-18); CALCIUM 9.1 mg/dL (8.5-10.1); CHLORIDE 106 mmol/L (98-107); CO2 28 mmol/L (21-32); GLUCOSE,RANDOM 82 mg/dL (74-106); SODIUM 140 mmol/L (136-145)
[2017-11-20 14:21] LABS: ALK PHOS 109 U/L (45-117); BILIRUBIN,TOTAL 0.5 mg/dL (0.2-1.0); CHOLESTEROL 177 mg/dL (50-200); CREATININE 1.1 mg/dL (0.55-1.3); HDL CHOLESTEROL 86 mg/dL (40-60); SGPT/ALT 29 U/L (13-61); TOT PROT 7.1 g/dl (6.4-8.2); TRIGLYCERIDES 83 mg/dL (0-150)
[2017-11-20 14:26] LABS: POTASSIUM 3.9 mmol/L (3.5-5.1); SGOT/AST 35 U/L (15-37)
--- NOTE | 2017-11-20 14:26 | EKG ---
Test Reason : Blood Pressure : / mmHG Vent. Rate : 083 BPM Atrial Rate : 098 BPM P-R Int : 000 ms QRS Dur : 084 ms QT Int : 404 ms P-R-T Axes : 000 012 -31 degrees QTc Int : 474 ms ATRIAL FIBRILLATION SEPTAL INFARCT (CITED ON OR BEFORE 08-JUL-2014) ABNORMAL ECG WHEN COMPARED WITH ECG OF 30-AUG-2017 21:10, COMPARED TO EKG NO SIGNIFICANT CHANGE IS FOUND Confirmed by KAVITA LAYTON MD ([id number]) on 11/20/2017 2:25:55 PM Referred By: Confirmed By:KAVITA LAYTON MD
[2017-11-20 14:31] LABS: URINE APPEARANCE CLEAR; URINE BILIRUBIN NEGATIVE (<2.0 mg/dL); URINE COLOR LTYELLOW; URINE GLUCOSE (UA) NEGATIVE (NEGATIVE); URINE KETONE NEGATIVE (NEGATIVE); URINE LEUK ESTERASE NEGATIVE (NEGATIVE); URINE NITRITE NEGATIVE (NEGATIVE); URINE PROTEIN NEGATIVE (NEGATIVE); URINE UROBILINOGEN NEGATIVE mg/dL (0.2-1.0)
--- NOTE | 2017-11-20 14:37 | PDOC ---
Attending Attestation - Resident Resident Name: Jean Claude Cervantes - ED Attending Attestation I have performed the following: I have examined & evaluated the patient, The case was reviewed & discussed with the resident, I agree w/resident's findings & plan, Exceptions are as noted - HPI HPI: 11/20/17 16:15 Agree with residents HPI - Physicial Exam PE: 11/20/17 16:15 Agree with residents PE - Medical Decision Making 11/20/17 16:16 87 y/o Multiple medical problems presents to the ED with several day history of left-sided facial droop and decreased sensation Differential diagnosis includes Krause's palsy versus CVA Does not involve the forehead NIHSS score 2. Not in the window for TPA, score does not meet criteria as well CT unremarkable Will observe overnight for neurology consultation and MRI and further management. Heart Score/ECG Review - ECG Impressions Comment:: 11/20/17 16:17 EKG performed at 1304 demonstrates A. fib septal infarct age indeterminate no ST elevations. Interpreted by me.
--- NOTE | 2017-11-20 16:07 | CON.NEURO ---
Consult - Past Medical History Cardio/Vascular: Yes: AFIB, CHF, Mitral Insufficiency Pulmonary: Yes: Asthma. No: Cancer Psych: Yes: Anxiety Musculoskeletal: Yes: Osteoarthritis - Past Surgical History Past Surgical History: Yes: Cholecystectomy - Alcohol/Substance Use Hx Alcohol Use: No History of Substance Use: reports: None - Smoking History Smoking history: Never smoked Have you smoked in the past 12 months: No - Social History Usual Living Arrangement: Assisted Living ADL: Independent History of Recent Travel: No Home Medications - Allergies Allergies/Adverse Reactions: Allergies Allergy/AdvReac Type Severity Reaction Status Date / Time levofloxacin Allergy Rash Verified 11/20/17 12:16 oxycodone [From Percocet] Allergy Verified 11/20/17 12:16 - Home Medications Home Medications: Ambulatory Orders Atorvastatin Ca [Lipitor] 20 mg PO DAILY 07/07/14 Diltiazem HCl [Cardizem LA] 240 mg PO DAILY 07/07/14 Paroxetine HCl [Paxil -] 40 mg PO DAILY 07/07/14 Albuterol Sulfate Inhaler - [Ventolin HFA Inhaler -] 1 - 2 inh PO Q4H PRN Fluticasone/Salmeterol [Advair 250-50 Diskus] 1 each IH DAILY 07/18/17 Multivitamin [Daily Multiple Vitamin] 1 each PO DAILY 07/18/17 Diazepam [Valium] 5 mg PO DAILY PRN 08/16/17 Ferrous Sulfate [Feosol] 325 mg PO BID #60 tablet 08/21/17 Gabapentin [Neurontin -] 300 mg PO TID #45 capsule 08/21/17 Guaifenesin [Robitussin -] 10 ml PO Q4H PRN #1 bottle 08/21/17 Apixaban [Eliquis -] 5 mg PO BID #60 tablet 09/05/17 Furosemide [Lasix -] 20 mg PO DAILY 09/05/17 Potassium Chloride [K-Dur -] 10 meq PO DAILY 09/05/17 Family Disease History - Family Disease History Family Disease History: CA: Sister ("Cancer on face"), Other: Daughter ( Leukemia in remission) Physical Exam-Neuro Vital Signs: Vital Signs Temperature 98.0 F 11/20/17 14:45 Pulse Rate 81 11/20/17 14:45 Respiratory Rate 18 11/20/17 14:45 Blood Pressure 114/59 11/20/17 14:45 O2 Sat by Pulse Oximetry (%) 96 11/20/17 14:45 Labs: CBC, BMP 11/20/17 13:00 11/20/17 13:00 INR, PTT INR 1.44 (0.83-1.09) H 11/20/17 13:00 Assessment/Plan cc Right facial paralysis HPI: 87 year old female history of atrial fibrillation( On Pradaxa), CHF,COPD, HTN. She has been noticing facial droopiness for three days. There is no headache, no LOC, There is no weakness, numbness or aphasia. There is no seizure. She denies any new cardiac symptoms. PMH as above - Past Medical History Allergies/Adverse Reactions: Allergies Allergy/AdvReac Type Severity Reaction Status Date / Time levofloxacin Allergy Rash Verified 11/20/17 12:16 oxycodone [From Percocet] Allergy Verified 11/20/17 12:16 Home Medications: Atorvastatin Ca [Lipitor] 20 mg PO DAILY 07/07/14 Diltiazem HCl [Cardizem LA] 240 mg PO DAILY 07/07/14 Paroxetine HCl [Paxil -] 40 mg PO DAILY 07/07/14 Albuterol Sulfate Inhaler - [Ventolin HFA Inhaler -] 1 - 2 inh PO Q4H PRN Fluticasone/Salmeterol [Advair 250-50 Diskus] 1 each IH DAILY 07/18/17 Multivitamin [Daily Multiple Vitamin] 1 each PO DAILY 07/18/17 Diazepam [Valium] 5 mg PO DAILY PRN 08/16/17 Ferrous Sulfate [Feosol] 325 mg PO BID #60 tablet 08/21/17 Gabapentin [Neurontin -] 300 mg PO TID #45 capsule 08/21/17 Guaifenesin [Robitussin -] 10 ml PO Q4H PRN #1 bottle 08/21/17 Apixaban [Eliquis -] 5 mg PO BID #60 tablet 09/05/17 Furosemide [Lasix -] 20 mg PO DAILY 09/05/17 Potassium Chloride [K-Dur -] 10 meq PO DAILY 09/05/17 Family History, Social HISTORY , ROS is reviewd in chart Neurological Examiantion She speaks georgian , history was taken with help of daughter Alert follow command, oriented x 2 EOMI, PUPILS IS REACTIVE, There is facial palsy, it appears to be LMN type, as she has weakness in closure of right eye lid motor 5/5 all ext sensation is normal ct head 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 Given that it is so subtle and her risk factors and ct scan fidings, I concur to confirm with mri of brain Plan- She can be given prednisone 20 mg once a day for five days , once mri of brain normal - continue current level of care, would wait for mri of brain, if confirmed stroke, further work up may be needed - overall diagnosis and prognosis was discussed with patient Thanking you so much Santos Herrera MD
[2017-11-20] MEDS ORDERED: diazePAM 5 MG TABLET PO PRN (17:18)
[2017-11-20] MEDS ORDERED: ACETAMINOPHEN 325 MG TABLET (FP) PO PRN (17:20)
--- NOTE | 2017-11-20 17:23 | HP ---
Admitting History and Physical - Primary Care Physician PCP: John Swenson - Admission History of Present Illness: The patient is an 87F with a PMH of AFib (on Pradaxa), CHF, COPD, HTN, and shingles who presents to the ER after noting some drooping of her mouth. The patient states that 2-3 days ago, she was brushing her teeth and noted that some water was dribbling out of the R side of her mouth. She states that this has stayed the same for the past 3 days. She denies any numbness, tingling, or weakness in any other part of her body. She denies any changes in her vision, CP , SOB, palpitations, and lightheadedness. CT scan--- old infarct No acute infarct Discussed with----ER resident Discussed with patient's daughter Neurology consult also noted--MRI ordered History Source: Family Member - Past Medical History Cardiovascular: Yes: AFIB, CHF, Mitral Insufficiency Pulmonary: Yes: Asthma. No: Cancer Heme/Onc: Yes: Anemia Psych: Yes: Anxiety Musculoskeletal: Yes: Osteoarthritis - Past Surgical History Past Surgical History: Yes: Cholecystectomy - Smoking History Smoking history: Never smoked Have you smoked in the past 12 months: No - Alcohol/Substance Use Hx Alcohol Use: No History of Substance Use: reports: None - Social History ADL: Independent History of Recent Travel: No Home Medications - Allergies Allergies/Adverse Reactions: Allergies Allergy/AdvReac Type Severity Reaction Status Date / Time levofloxacin Allergy Rash Verified 11/20/17 12:16 oxycodone [From Percocet] Allergy Verified 11/20/17 12:16 - Home Medications Home Medications: Ambulatory Orders Atorvastatin Ca [Lipitor] 20 mg PO DAILY 07/07/14 Diltiazem HCl [Cardizem LA] 240 mg PO DAILY 07/07/14 Paroxetine HCl [Paxil -] 40 mg PO DAILY 07/07/14 Albuterol Sulfate Inhaler - [Ventolin HFA Inhaler -] 1 - 2 inh PO Q4H PRN Fluticasone/Salmeterol [Advair 250-50 Diskus] 1 each IH DAILY 07/18/17 Multivitamin [Daily Multiple Vitamin] 1 each PO DAILY 07/18/17 Diazepam [Valium] 5 mg PO DAILY PRN 06/13/18 Ferrous Sulfate [Feosol] 325 mg PO BID #60 tablet 08/21/17 Gabapentin [Neurontin -] 300 mg PO TID #45 capsule 08/21/17 Guaifenesin [Robitussin -] 10 ml PO Q4H PRN #1 bottle 08/21/17 Apixaban [Eliquis -] 5 mg PO BID #60 tablet 09/05/17 Furosemide [Lasix -] 20 mg PO DAILY 09/05/17 Potassium Chloride [K-Dur -] 10 meq PO DAILY 09/05/17 Prednisone [Deltasone] 20 mg PO DAILY #4 tablet 11/21/17 Family Disease History - Family Disease History Family Disease History: CA: Sister ("Cancer on face"), Other: Daughter ( Leukemia in remission) Review of Systems Unable to obtain ROS, reason: see lummi Physical Examination Vital Signs: Vital Signs Temperature 97.3 F L 11/20/17 16:20 Pulse Rate 97 H 11/20/17 16:20 Respiratory Rate 20 11/20/17 16:20 Blood Pressure 152/96 11/20/17 16:20 O2 Sat by Pulse Oximetry (%) 98 11/20/17 16:20 Constitutional: Yes: No Distress, Calm Eyes: Yes: Conjunctiva Clear Neck: Yes: Supple Cardiovascular: Yes: Pulse Irregular. 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
[2017-11-20 19:58] VITALS: BMI 31.1
[2017-11-20] MEDS ORDERED: FLU VACCINE QUAD 60 MCG/0.5 ML (MDV 18-19) IM SCH (20:00)
[2017-11-20] MEDS ORDERED: PT OWN MED DRAWER 7, Y5N ONE (21:32)
[2017-11-20] MEDS: GABAPENTIN 300 MG CAPSULE (FP) PO SCH (21:33)
[2017-11-20] MEDS: APIXABAN 5 MG TABLET PO SCH (21:33)
[2017-11-20] MEDS ORDERED: ATORVASTATIN CA 20 MG TABLET (FP) PO SCH (22:00)
[2017-11-20] MEDS ORDERED: CODEINE SO4 30 MG TABLET PO ONE ×2 (22:03→22:08)
[2017-11-20] MEDS: BUDESONIDE/FORMETEROL FUMARATE 80/4.5 mcg INHALER IH SCH (22:11)
[2017-11-21] MEDS: GABAPENTIN 300 MG CAPSULE (FP) PO SCH (05:06)
[2017-11-21 06:10] LABS: BASO % 0.9 % (0-2.0); EOS % 6.9 % (0-4.5); HEMATOCRIT 38.5 % (32.4-45.2); HEMOGLOBIN 12.6 GM/dL (10.7-15.3); LYMPH % 26.6 % (8-40); MCH 31.3 pg (25.7-33.7); MCHC 32.8 g/dl (32.0-36.0); MEAN CELL VOLUME 95.4 fl (80-96); MEAN PLT VOLUME 7.8 fl (7.5-11.1); MONO % 8.6 % (3.8-10.2); PLATELET COUNT 256 K/MM3 (134-434); RBC 4.04 M/mm3 (3.60-5.2); RDW 14.9 % (11.6-15.6); WHITE BLOOD COUNT 6.5 K/mm3 (4.0-10.0)
[2017-11-21 06:42] LABS: CHLORIDE 108 mmol/L (98-107); POTASSIUM 3.4 mmol/L (3.5-5.1); SODIUM 146 mmol/L (136-145)
[2017-11-21 06:57] LABS: CHOLESTEROL 155 mg/dL (50-200); HDL CHOLESTEROL 73 mg/dL (40-60); TRIGLYCERIDES 71 mg/dL (0-150)
[2017-11-21 07:02] LABS: ALBUMIN 3.2 g/dl (3.4-5.0); ALK PHOS 104 U/L (45-117); ANION GAP 12 MMOL/L (8-16); BILIRUBIN,TOTAL 0.6 mg/dL (0.2-1); BLOOD UREA NITROGEN 15 mg/dL (7-18); CALCIUM 8.8 mg/dL (8.5-10.1); CO2 26 mmol/L (21-32); CREATININE 0.8 mg/dL (0.55-1.3); GLUCOSE,RANDOM 94 mg/dL (74-106); SGOT/AST 29 U/L (15-37); SGPT/ALT 27 U/L (13-61); TOT PROT 6.1 g/dl (6.4-8.2)
[2017-11-21] MEDS ORDERED: FERROUS SO4 325 MG TABLET (FP) PO SCH (08:00)
[2017-11-21 08:26] VITALS: BP 135/91; PULSE 89; TEMP 97.9
[2017-11-21] MEDS: APIXABAN 5 MG TABLET PO SCH (09:00)
[2017-11-21] MEDS: BUDESONIDE/FORMETEROL FUMARATE 80/4.5 mcg INHALER IH SCH (09:02)
--- NOTE | 2017-11-21 09:14 | CON.CARD ---
Consult Consult Specialty:: cardiology Reason for Consultation:: severe mitral regurgitation; diastolic CHF - History of Present Illness Chief Complaint: Pt Alert; sitting up at bedside; easily fatigued and short of breath; right facial and right shoulder pain was eased by medication last night History of Present Illness: The patient is an 87F with a PMH of AFib (on Pradaxa), significant mitral regurgitation (for evaluation at [facility] for possible MV repair or replacement), diastolic CHF, COPD, HTN, hyperlipidemia, iron-deficiency anemia, anxiety, and shingles, who presents to the ER after noting some drooping of her mouth. The patient states that 2-3 days ago, she was brushing her teeth and noted that some water was dribbling out of the R side of her mouth. She states that this has stayed the same for the past 3 days. She denies any numbness, tingling, or weakness in any other part of her body. She denies any changes in her vision, CP, SOB, palpitations, and lightheadedness. - History Source History Provided By: Patient, Medical Record Limitations to Obtaining History: No Limitations - Past Medical History Cardio/Vascular: Yes: AFIB, CHF, Mitral Insufficiency Pulmonary: Yes: Asthma. No: Cancer Reproductive: Yes: Postmenopausal ...: No Heme/Onc: Yes: Anemia Psych: Yes: Anxiety Musculoskeletal: Yes: Osteoarthritis - Past Surgical History Past Surgical History: Yes: Cholecystectomy - Alcohol/Substance Use Hx Alcohol Use: No History of Substance Use: reports: None - Smoking History Smoking history: Never smoked Have you smoked in the past 12 months: No - Social History Usual Living Arrangement: Assisted Living ADL: Independent History of Recent Travel: No Home Medications - Allergies Allergies/Adverse Reactions: Allergies Allergy/AdvReac Type Severity Reaction Status Date / Time levofloxacin Allergy Rash Verified 11/20/17 12:16 oxycodone [From Percocet] Allergy Verified 11/20/17 12:16 - Home Medications Home Medications: Ambulatory Orders Atorvastatin Ca [Lipitor] 20 mg PO DAILY 07/07/14 Diltiazem HCl [Cardizem LA] 240 mg PO DAILY 07/07/14 Paroxetine HCl [Paxil -] 40 mg PO DAILY 07/07/14 Albuterol Sulfate Inhaler - [Ventolin HFA Inhaler -] 1 - 2 inh PO Q4H PRN Fluticasone/Salmeterol [Advair 250-50 Diskus] 1 each IH DAILY 07/18/17 Multivitamin [Daily Multiple Vitamin] 1 each PO DAILY 07/18/17 Diazepam [Valium] 5 mg PO DAILY PRN 08/16/17 Ferrous Sulfate [Feosol] 325 mg PO BID #60 tablet 08/21/17 Gabapentin [Neurontin -] 300 mg PO TID #45 capsule 08/21/17 Guaifenesin [Robitussin -] 10 ml PO Q4H PRN #1 bottle 08/21/17 Apixaban [Eliquis -] 5 mg PO BID #60 tablet 09/05/17 Furosemide [Lasix -] 20 mg PO DAILY 09/05/17 Potassium Chloride [K-Dur -] 10 meq PO DAILY 09/05/17 Family Disease History - Family Disease History Family Disease History: CA: Sister ("Cancer on face"), Other: Daughter ( Leukemia in remission) - Risk Factors Known Risk Factors: Yes: Age, Hypertension, Physical Inactivity, Other (RV dysfunction; significant MR) Vital Signs: Vital Signs Temperature 97.9 F 11/21/17 08:23 Pulse Rate 89 11/21/17 08:23 Respiratory Rate 17 11/21/17 08:23 Blood Pressure 135/91 11/21/17 08:23 O2 Sat by Pulse Oximetry (%) 96 11/21/17 08:23 Constitutional: Yes: Anxious Eyes: Yes: WNL HENT: Yes: WNL Neck: Yes: WNL Respiratory: Yes: Tachypnea - Other Data Labs, Other Data: CBC, BMP 11/21/17 05:30 11/21/17 05:30 INR, PTT INR 1.44 (0.83-1.09) H 11/20/17 13:00 Troponin, BNP 11/20/17 13:00 Troponin I 0.02 Troponin, BNP 11/20/17 13:00 Troponin I 0.02 Problem List - Problems (1) Severe mitral regurgitation by prior echocardiogram Assessment/Plan: Pt ECHO 08/2017: normal LVEF; moderately reduced RVEF; mildly dilated RV; severely dilated LA; mod-severely dilated RA; moderate TR,with mild-moderate pulmonary HTN; moderate MAC, with severe MR. Code(s): I34.0 - NONRHEUMATIC MITRAL (VALVE) INSUFFICIENCY (2) Asthma Code(s): J45.909 - UNSPECIFIED ASTHMA, UNCOMPLICATED (3) Atrial fibrillation Assessment/Plan: On diltiazem CD 240 mg daily for HR and BP control; may require increase in dose. On apixaban for anticoagulation. Code(s): I48.91 - UNSPECIFIED ATRIAL FIBRILLATION Qualifiers: Atrial fibrillation type: chronic atrial fibrillation (4) Back pain with radiation Code(s): M54.9 - DORSALGIA, UNSPECIFIED (5) Hyperlipemia Code(s): E78.5 - HYPERLIPIDEMIA, UNSPECIFIED (6) Shingles Code(s): B02.9 - ZOSTER WITHOUT COMPLICATIONS Qualifiers: Herpes zoster complications: without complications Qualified Code(s): B02.9 - Zoster without complications (7) Hypokalemia Assessment/Plan: replete K+ (pt is on furosemide). F/u all electrolytes. Code(s): E87.6 - HYPOKALEMIA
[2017-11-21] MEDS ORDERED: FUROSEMIDE 20 MG TABLET (FP) PO SCH (10:00)
[2017-11-21] MEDS ORDERED: POTASSIUM CHLORIDE TABS 10 MEQ TABLET.ER (FP) PO SCH (10:00)
[2017-11-21] MEDS ORDERED: MULTIVITAMINS (DAILY MVI) TABLET (FP) PO SCH (10:00)
[2017-11-21] MEDS ORDERED: PARoxetine HCL 20 MG TABLET (FP) PO SCH (10:00)
--- NOTE | 2017-11-21 10:52 | DS ---
Physical Examination Vital Signs: Vital Signs Temperature 97.9 F 11/21/17 08:23 Pulse Rate 89 11/21/17 08:23 Respiratory Rate 17 11/21/17 08:23 Blood Pressure 135/91 11/21/17 08:23 O2 Sat by Pulse Oximetry (%) 96 11/21/17 08:23 Constitutional: Yes: No Distress, Calm Cardiovascular: Yes: Regular Rate and Rhythm, Murmur Respiratory: Yes: CTA Bilaterally Gastrointestinal: Yes: Normal Bowel Sounds, Soft. No: Tenderness Edema: No Neurological: Yes: Alert, Oriented, Facial Droop Labs: CBC, BMP 11/21/17 05:30 11/21/17 05:30 Discharge Summary Reason For Visit: CEREBROVASCULAR ACCIDENT Current Active Problems Cerebrovascular accident (CVA) (Acute) Hypokalemia (Acute) Severe mitral regurgitation by prior echocardiogram (Acute) Hospital Course: Admitted for right facial droop- had H.Zoster about 4 days ago-- seen by Neurology and Cardiology-- MRI brain -- no infartcs-- facial droop due to [place] palsy Pt started on PO prednisone Stable for dc home Condition: Improved - Instructions Referrals: John Swenson MD [Primary Care Provider] - Disposition: HOME - Home Medications Comprehensive Discharge Medication List: Ambulatory Orders Atorvastatin Ca [Lipitor] 20 mg PO DAILY 07/07/14 Diltiazem HCl [Cardizem LA] 240 mg PO DAILY 07/07/14 Paroxetine HCl [Paxil -] 40 mg PO DAILY 07/07/14 Albuterol Sulfate Inhaler - [Ventolin HFA Inhaler -] 1 - 2 inh PO Q4H PRN Fluticasone/Salmeterol [Advair 250-50 Diskus] 1 each IH DAILY 07/18/17 Multivitamin [Daily Multiple Vitamin] 1 each PO DAILY 07/18/17 Diazepam [Valium] 5 mg PO DAILY PRN 08/16/17 Ferrous Sulfate [Feosol] 325 mg PO BID #60 tablet 08/21/17 Gabapentin [Neurontin -] 300 mg PO TID #45 capsule 08/21/17 Guaifenesin [Robitussin -] 10 ml PO Q4H PRN #1 bottle 08/21/17 Apixaban [Eliquis -] 5 mg PO BID #60 tablet 09/05/17 Furosemide [Lasix -] 20 mg PO DAILY 09/05/17 Potassium Chloride [K-Dur -] 10 meq PO DAILY 09/05/17
[2017-11-21] MEDS ORDERED: POTASSIUM CHLORIDE TABS 20 MEQ TABLET.ER (FP) PO ONE (10:53)
[2017-11-21 11:24] LABS: MAGNESIUM 2.2 mg/dL (1.8-2.4)
[2017-11-21 11:25] LABS: N-TERMINAL BNP 846.78 pg/ml (5-450)
[2017-11-21] MEDS ORDERED: predniSONE 20 MG TABLET (UD) PO ONE (11:30)
== END 2017-11-21 14:23 | disposition home or self-care (01) ==
LOC: JER 12:06 → INTOOBSV 14:18 → JERBED 14:18 → UNDOADMOB 14:18 → J4W 17:21 → JERBED 19:08
PROVIDERS: ADMIT Internal Medicine; ATTEND Internal Medicine
PROC: 3E0F7GC Introduction of Other Therapeutic Substance into Respiratory Tract, Via Natural or Artificial Opening (ICD-10-PCS; principal; 2017-11-20)
PROC: 3E0234Z Introduction of Serum, Toxoid and Vaccine into Muscle, Percutaneous Approach (ICD-10-PCS; 2017-11-20)
DX: G51.0 Bell's palsy (principal); B02.9 Zoster without complications; E87.6 Hypokalemia; I48.91 Unspecified atrial fibrillation; Z79.01 Long term (current) use of anticoagulants; I10 Essential (primary) hypertension; I50.30 Unspecified diastolic (congestive) heart failure; I34.0 Nonrheumatic mitral (valve) insufficiency; J44.9 Chronic obstructive pulmonary disease, unspecified; E78.00 Pure hypercholesterolemia, unspecified; F41.9 Anxiety disorder, unspecified; M19.90 Unspecified osteoarthritis, unspecified site; D50.9 Iron deficiency anemia, unspecified; Z88.1 Allergy status to other antibiotic agents; Z91.018 Allergy to other foods
CPT/HCPCS: 36415; 70450-TC; 70551-TC; 71046-TC-FY; 80053; 80061; 81003; 82465; 82550; 83718; 83721; 83735; 83880; 84443; 84478; 84484; 85025; 85610; 86850; 86900; 86901; 90471; 90688; 93005; 93010; 94640; 99285-25; G0378